=== PATIENT | male | born 1950 | race Caucasian/White ===

== ENCOUNTER → 2021-11-09 | Outpatient (CLI) | payer BC ==
--- NOTE | 2021-11-09 11:35 | CT ---
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 Coronal/sagittal reconstructions performed. CT DLP: 354.8 mGycm Automated exposure control for dose reduction was used. FINDINGS: There appear to post surgical change of prior FESS but with residual moderate to severe mucosal thick ening in the left ethmoid air cells with possible opacified left-sided Erendira cell. Scattered mild to moderate mucosal thickening throughout the remainder of the paranasal sinuses. Visualized orbits and globes and mastoid air cells appear clear. The nasopharynx appears clear. There is marked asymmetric soft tissue enlargement measuring 3.3 x 3.2 x 2.5 cm along the left tubal and left palatine tonsils mildly narrowing the junction of the nasopharynx and oropharynx. Moderate lingual tonsillar hypertrophy. Epiglottis and prevertebral soft tissues are satisfactory. Glottic and subglottic structures as well as the tracheal column appear clear. Mild biapical pleural-parenchymal scarring. Mild to moderate atherosclerotic plaque and calcification s within the aortic arch. Mild metastatic narrowing at the proximal bilateral subclavian arteries. And thyroid and submandibular glands appear satisfactory. Mild atrophy of the parotid glands. Asymmetrically prominent 8 mm left submandibular space lymph node. Palpable marker along the left lateral aspect of the upper neck with 2 enlarged underlying lymph node s measuring up to 2.7 cm. One of these lymph nodes shows loss of delineation with intervening fat abraham ne with the adjacent/overlying sternocleidomastoid muscle, refer to axial image 57. A rounded 1.0 cm lymph node also deep to the sternocleidal mastoid muscle lateral left mid neck is mi ldly suspicious. Coronal image 41. Moderate to advanced degenerative disc disease mid to lower cervical spine. IMPRESSION: 1. Neoplasm/mass of the left palatine tonsil measuring up to 3.3 cm, mildly narrowing the airway betw een the nasopharynx and oropharynx. 2. Two abnormal lymph nodes lateral left upper neck at the palpable site deep to the sternocleidomast oid muscle measuring up to 2.7 cm each. One of these shows loss of the fat plane with the adjacent st ernocleidomastoid muscle. Early extracapsular invasion difficult to exclude. 3. A third rounded 1.0 cm lymph node also deep to the left sternocleidomastoid muscle lateral left mi d neck is mildly suspicious.
== END | disposition home or self-care (01) ==
LOC: RADCTMAIN 06:28
PROVIDERS: ATTEND Otolaryngology
DX: C11.1 Malignant neoplasm of posterior wall of nasopharynx (principal); R59.1 Generalized enlarged lymph nodes
CPT/HCPCS: 82565; 84520; 70491; 36415; Q9967

== ENCOUNTER → 2021-11-30 | Outpatient (CLI) | payer MEDICARE, BC | END | disposition home or self-care (01) | LOC: RADPETMAIN 07:30 | PROVIDERS: ATTEND Internal Medicine Hematology & Oncology | DX: C76.0 Malignant neoplasm of head, face and neck (principal) | CPT/HCPCS: 78815; A9552 ==

== ENCOUNTER → 2022-01-17 | Outpatient (CLI) | payer MEDICARE, BC ==
--- NOTE | 2022-01-17 15:06 | MR ---
EXAMINATION TYPE: MR abdomen wo/w con DATE OF EXAM: 01/17/2022 COMPARISON: PET CT 11/30/2021. HISTORY: HEAD AND NECK CA. Abnormal recent PET/CT. CONTRAST: Standard multiplanar, multisequence MRI departmental protocol images were obtained without contrast a nd with 8 mL intravenous Gadavist gadolinium contrast. Imaging performed of the abdomen focusing on the liver. FINDINGS: Liver: Liver is normal in size with occasional benign tiny punctate thin-walled cysts. Largest cyst i n the right hepatic lobe measures near 10 mm axial image 26 series 701. No concerning solid masses to suggest metastatic disease identified. Gallbladder appears within normal limits. No biliary dilatati on is seen. Other: Lung bases are grossly clear. The spleen and pancreas appear within normal limits. Slight asym metric nodular thickening to the right adrenal gland with dropout consistent with benign lipid rich a denoma. Large exophytic thin-walled cyst upper pole right kidney measures 8.7 cm long axis coronal im age 31. No suspicious small or large bowel dilatation. Hepatic abdominal aorta without greater than 3 .0 cm aneurysm redemonstrated. Slight underlying scoliotic curvature with multilevel spurring and dis c space narrowing throughout the thoracolumbar spine. IMPRESSION: No MRI evidence for hepatic metastatic disease.
== END | disposition home or self-care (01) ==
LOC: RADMRIMAIN 11:43
PROVIDERS: ATTEND Internal Medicine Hematology & Oncology
DX: C76.0 Malignant neoplasm of head, face and neck (principal)
CPT/HCPCS: 74183; A9585

== ENCOUNTER → 2022-05-03 | Outpatient (CLI) | payer MEDICARE, BC ==
--- NOTE | 2022-05-03 13:05 | PE ---
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 Originally diagnosed November 23, 2021. Patient c ompleted radiation treatment February 08, 2021 and chemotherapy around same date. TECHNIQUE: Following the intravenous administration of 11.69 mCi of F-18 FDG, whole body images are performed from the skull base to the midthigh. Images are reviewed on the computer in the coronal, a xial, and sagittal planes. Reconstructed rotating images are created on independent workstation and reviewed on the computer. A localization and attenuation correction CT is performed in conjunction with the PET scan. Dedicated PET/CT imaging of the neck is performed. Blood glucose level equals 78 SCAN: Subsequent Scan FINDINGS: SKULL BASE AND NECK: Marked improvement in abnormal hypermetabolic primary left tongue base mass wit hout residual mass or hypermetabolic uptake near this level on current study. Marked improvement in a bnormal bilateral neck adenopathy greatest in number and size in the left neck without residual abnor mal hypermetabolic uptake or greater than 1 cm lymph nodes clearly seen on current study. No new or r esidual hypermetabolic masses are present. CHEST, MEDIASTINUM, AND HILAR REGION: No new areas of abnormal hypermetabolic uptake. ABDOMEN AND PELVIS: No new areas of abnormal hypermetabolic uptake. Normal excretion redemonstrated. OSSEOUS STRUCTURES: No new areas of abnormal hypermetabolic uptake. OTHER CT: Moderate calcified plaque centered bilateral carotid bulb level is redemonstrated. New mode rate subcutaneous edema submandibular region bilaterally presumed posttreatment change. Mild underlying emphysematous change is redemonstrated. Coronary artery calcification is again seen. There is 7.5 cm simple appearing thin-walled cyst upper pole of the right kidney axial image 133 rede monstrated. There is atherosclerotic and ectatic abdominal aorta axial image 167 redemonstrated. Cent ral calcifications in the slightly enlarged prostate gland are redemonstrated. Multilevel disc space narrowing and facet arthropathy in the lumbar spine is again seen. IMPRESSION: Complete positive treatment response as detailed above. No new or residual lesions of abn ormal hypermetabolic uptake noted.
== END | disposition home or self-care (01) ==
LOC: RADPETMAIN 08:34
PROVIDERS: ATTEND Radiology Radiation Oncology
DX: C09.1 Malignant neoplasm of tonsillar pillar (anterior) (posterior) (principal); C77.0 Secondary and unspecified malignant neoplasm of lymph nodes of head, face and neck; Z79.899 Other long term (current) drug therapy
CPT/HCPCS: 78815; A9552

== ENCOUNTER → 2023-03-07 | Outpatient (CLI) | payer MEDICARE, BC ==
[2023-03-07 10:36] LABS: African American GFR (CKD) >90 (>60 ml/min/1.73 sqM); Blood Urea Nitrogen 18 mg/dL (9-20); Non-African American GFR(CKD) 89 (>60 ml/min/1.73 sqM)
--- NOTE | 2023-03-07 13:06 | CT ---
EXAMINATION TYPE: CT neck chest w con DATE OF EXAM: 03/07/2023 COMPARISON: PET CT 05/03/2022 and 11/30/2021 HISTORY: 73-year-old male C7 6.0, Follow up for malignant neoplasm of head, face and neck. TECHNIQUE: Contiguous axial scanning of the neck and chest performed with IV Contrast, patient inject ed with 100ml mL of Isovue 300. Coronal/sagittal reconstructions performed. CT DLP: 710.5 mGycm Automated exposure control for dose reduction was used. FINDINGS: NECK: Scattered moderate mucosal thickening throughout the paranasal sinuses. Findings of prior sinonasal s urgery. Atrophic bilateral submandibular and parotid glands. No recurrent pharyngeal mass is identified. Similar slight asymmetric effacement of the left vallecul ar space. Epiglottis and prevertebral soft tissues are satisfactory. Glottic and subglottic structures as well as the tracheal column appear clear. Moderate atherosclerotic changes at the carotid bifurcations. Bones: Moderate to advanced spondylotic change C4-T1 levels. CHEST: Heart normal size without pericardial effusion. Scattered three-vessel coronary artery calcifications are present. Moderate atherosclerotic arch calcifications with conventional arch vessel branching anatomy. Ectatic lower descending thoracic aorta 2.9 cm. No thoracic lymphadenopathy by CT size criteria. Some streaky dependent atelectasis posterior lung bases. Underlying emphysematous change and minimal biapical pleural-parenchymal scarring. No consolidation or pleural effusion. There is a large cyst measuring 8.4 cm at the upper pole of the right kidney versus a 8.0 cm, previou sly. Possible suspicious hypodense lesion posterior segment 2 left liver lobe measuring 1.6 cm. Additional subtle hypodense areas are suggested in the mid liver liver measuring 1.5 cm. A new 3.7 cm hypodense lesion within the spleen. Bones: Mild multilevel degenerative disc disease. Anterior endplate spondylosis mid to lower thoracic spine. No osseous destructive process seen. IMPRESSION: NECK: 1. NO SUSPICIOUS MASS OR LYMPHADENOPATHY TO SUGGEST RECURRENT DISEASE IN THE NECK. CHEST: 2. HOWEVER, IN THE UPPER ABDOMEN, THERE ARE A COUPLE NEW SUSPICIOUS HEPATIC LESIONS MEASURING UP TO 1 .6 CM. 3. ALSO, NEW HYPODENSE LESION WITHIN THE SPLEEN MEASURING 3.7 CM. FINDINGS CONCERNING FOR METASTATIC DISEASE. 4. COPD WITH MILD EMPHYSEMA. CORONARY ARTERY CALCIFICATIONS. NO ACUTE PULMONARY PROCESS.
== END | disposition home or self-care (01) ==
LOC: RADCTMAIN 09:44
PROVIDERS: ATTEND Internal Medicine Hematology & Oncology
DX: C76.0 Malignant neoplasm of head, face and neck (principal); J43.9 Emphysema, unspecified; I25.10 Atherosclerotic heart disease of native coronary artery without angina pectoris; D73.89 Other diseases of spleen; K76.9 Liver disease, unspecified
CPT/HCPCS: 82565; 84520; 70491; 71260; 36415; Q9967

== ENCOUNTER 2023-04-28 11:31 | Day surgery (SDC) | payer MEDICARE, BC ==
[~2023-04-28 11:31] MED LIST: ACETAMINOPHEN TAB 500 MG TAB PO PRN; DEXAMETHASONE SOD PHOSPHATE 4 MG/ML 1 ML VIAL IV ONE; HEPARIN SODIUM,PORCINE/PF 5,000 UNIT/0.5 ML SYRINGE SQ PRN; HYDROmorphone 0.5 MG/0.5 ML SYRINGE IVP PRN; LACTATED RINGERS 1,000 ML IV SCH; LIDOCAINE 1% (10MG/ML) FOR IV START INTRADERMA PRN; ONDANSETRON 4 MG/2 ML VIAL IVP PRN; Pre Op ABX Message 1 EACH MISC MISCELLANE ONE
--- NOTE | 2023-04-28 12:05 | P.GSHP ---
History of Present Illness H&P Date: 04/28/23 CHIEF COMPLAINT: Metastatic squamous cell cancer HISTORY OF PRESENT ILLNESS: The patient is a 73-year-old male diagnosed with metastatic squamous cell cancer. He needs a Mediport placement for chemotherapy. PAST MEDICAL HISTORY: See list and reviewed PAST SURGICAL HISTORY: See list and reviewed CURRENT MEDICATIONS: See list and reviewed ALLERGIES: See list and reviewed SOCIAL HISTORY: See list and reviewed FAMILY HISTORY: See list and reviewed REVIEW OF ORGAN SYSTEMS: CONSTITUTIONAL: No fevers or chills RESPIRATORY: No pneumonia. No dyspnea on exertion. CARDIOVASCULAR: No recent chest pain. No history of blood clots PHYSICAL EXAMINATION: Vital signs: Stable GENERAL: Well developed and in no acute distress. Pleasant. HEENT: No sclera icterus. Extraocular movements grossly intact. Moist buccal mucosa. Head is atraumatic, normocephalic. Hears conversational sp eech. No nasal drainage. NECK: Supple without lymphadenopathy. No JV distention. CHEST: Non-labored respirations and equal bilateral excursions. CARDIOVASCULAR: Regular rate and rhythm. Palpable 2+ radial pulses. ABDOMEN: Nontender. MUSCULOSKELETAL: No clubbing, cyanosis or edema. NEUROLOGIC: No focal or lateralizing signs. PSYCH: Appropriate affect. Alert and oriented to person, place and time. ASSESSMENT: 1. Metastatic squamous cell cancer 2. Need for chemotherapeutic access. PLAN: 1. Port-A-Cath placement for chemotherapy access Past Medical History Past Medical History: Cancer, Hyperlipidemia Additional Past Medical History / Comment(s): tonsil cancer into lymph nodes 2021 radiation and chemo (last 02/28/22) clear pet scan 05/2022. repeat PET scan 03/[address] generalized squamous cell cancer. CT. per tumor to back of head that is uncomfortable and recent pain to side ( unspecified) History of Any Multi-Drug Resistant Organisms: None Reported Past Surgical History: Appendectomy Additional Past Surgical History / Comment(s): egd, Past Anesthesia/Blood Transfusion Reactions: No Reported Reaction Smoking Status: Former smoker - Past Family History Sister(s) Family Medical History: Cancer Father Family Medical History: Cancer Additional Family Medical History / Comment(s): lung Mother Family Medical History: Coronary Artery Disease (CAD) Medications and Allergies Home Medications Medication Instructions Recorded Confirmed Type Acetaminophen [Tylenol Extra 500 mg PO DIRECTED PRN 04/21/23 04/21/23 History Strength] Losartan [Cozaar] 50 mg PO HS 04/21/23 04/21/23 History Mv-Min/Folic/K1/Lycopen/Lutein 1 each PO DAILY 04/21/23 04/21/23 History [Centrum Silver Men Tablet] Unk Calcium 1 tab PO DAILY 04/21/23 04/21/23 History Unk Vitamin D3 1 tab PO DAILY 04/21/23 04/21/23 History Allergies Allergy/AdvReac Type Severity Reaction Status Date / Time No Known Allergies Allergy Verified 04/21/23 09:19
[2023-04-28 12:36] LABS: African American GFR (CKD) >90 (>60 ml/min/1.73 sqM); Anion Gap 8 mmol/L; Blood Urea Nitrogen 15 mg/dL (9-20); Carbon Dioxide 27 mmol/L (22-30); Chloride 104 mmol/L (98-107); Glucose 93 mg/dL (74-99); Non-African American GFR(CKD) >90 (>60 ml/min/1.73 sqM); Potassium 3.8 mmol/L (3.5-5.1); Sodium 139 mmol/L (137-145)
[2023-04-28 12:51] LABS: Basophils % (A) 0 %; Eosinophils # (A) 0.1 k/uL (0-0.7); Eosinophils % (A) 2 %; HCT 38.9 % (39.0-53.0); HGB 13.2 gm/dL (13.0-17.5); Lymphocytes # (A) 1.1 k/uL (1.0-4.8); Lymphocytes % (A) 14 %; MCH 31.4 pg (25.0-35.0); MCHC 33.9 g/dL (31.0-37.0); MCV 92.7 fL (80.0-100.0); Mean Platelet Volume 8.6; Monocytes # (A) 0.8 k/uL (0-1.0); Monocytes % (A) 10 %; Neutrophils # (A) 5.4 k/uL (1.3-7.7); Neutrophils % (A) 71 %; Platelet Count 335 k/uL (150-450); RDW 13.5 % (11.5-15.5); WBC 7.7 k/uL (3.8-10.6)
[2023-04-28] MEDS ORDERED: PHENYLEPHRINE-0.9% NACL SYG 1,000 MCG/10 ML SYRINGE ONE (13:09)
[2023-04-28] MEDS ORDERED: MIDAZOLAM 2 MG/2 ML VIAL ONE (13:09)
[2023-04-28] MEDS ORDERED: PROPOFOL 10 MG/ML 20 ML VIAL IV ONE (13:09)
[2023-04-28] MEDS ORDERED: LIDOCAINE 1% INJ 10MG/ML (20 ML MDV) ONE (13:09)
[2023-04-28] MEDS ORDERED: fentaNYL (PF) 50 MCG/ML 2 ML AMP ONE (13:09)
[2023-04-28] MEDS ORDERED: LIDOCAINE 0.5%-EPI 1:200,000 50 ML VIAL SQ ONE ×2 (13:41)
[2023-04-28] MEDS ORDERED: SODIUM CHLORIDE 0.9% 500 ML 500 ML with HEPARIN SODIUM,PORCINE (1 ML) 5,000 UNIT IV ONE ×2 (13:47)
[2023-04-28 14:30] VITALS: TEMP 97.2
--- NOTE | 2023-04-28 14:58 | FL ---
EXAMINATION TYPE: FL guided central line placemt HISTORY: Fluoroscopy time Impression: 1. Fluoroscopy support provided to the referring physician.
--- NOTE | 2023-04-28 15:05 | P.OP ---
Date of Procedure: 04/28/23 Description of Procedure: SURGEON: BHAKTI KHAN MD HOSPITAL ADMINISTRATOR: None. PREOPERATIVE DIAGNOSES: 1. 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 Need for chemotherapeutic access. 3. Hypertensive heart disease 4. History of previous chemoradiation for tonsillar cancer 5. Hyperlipidemia 6. Chronic obstructive pulmonary disease 7. Past tobacco abuse disorder POSTOPERATIVE DIAGNOSES: 1. 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 Need for chemotherapeutic access. 3. Hypertensive heart disease 4. History of previous chemoradiation for tonsillar cancer 5. Hyperlipidemia 6. Chronic obstructive pulmonary disease 7. Past tobacco abuse disorder PROCEDURES PERFORMED: 1. Ultrasound guided central venous access of the right internal jugular venous vein. 2. Fluoroscopic guidance for central venous access right internal jugular vein less than 1 seconds. 3. Placement of right internal jugular power port 6 [place] by ChaoWIFI, Xcela Plus Port ANESTHESIA: LMA sedation with local. ESTIMATED BLOOD LOSS: 1 mL. SPECIMENS REMOVED: None. COMPLICATIONS: None. FINDINGS: 1. No thrombus encountered along the right carotid artery or internal jugular vein. 2. Access of the right internal jugular vein under ultrasound guidance. 3. Fluoroscopy of less than 1 seconds. INDICATIONS: The patient is a 73-year-old male recently diagnosed with metastatic squamous cell cancer with history of tonsillar cancer. He presents for chemotherapeutic access. Benefits and risks of surgical intervention were described including bleeding, infection, mechanical problems with his port. Informed consent was obtained. DESCRIPTION OR PROCEDURE: Patient was brought into the operating room, laid in supine position. After adequate IV sedation, the chest and right neck were prepped and draped in a standard sterile fashion including the shoulder with ChloraPrep. Timeout protocol was confirmed with the surgical team regarding the patient's name, procedure to be performed including preoperative medications for which she received IV antibiotics. Bilateral SCDs were placed. An ultrasound was used to capture views of the right internal jugular vein including right carotid artery, which was patent and without thrombus along its course. The right IJ was then localized using anesthetic for the skin. A 16 [place] needle was used to access the IJ. A guidewire was advanced into the IJ with dark nonpulsatile venous blood. Two fingerbreadths distal to the clavicle, on the lateral third, a transverse 1.5 to 2 cm incision was deepened into the skin after localizing the skin. A pocket was created for the port. The port on the back table was flushed with heparinized saline and then attached to the catheter tubing. An adapter was fastened to the actual port site over the tubing. The port easily had fit snug into the pocket. A subcutaneous tunneler was placed along the open end of the tubing and brought out through the separate stab incision. Fluoroscopic guidance confirmed no kinking along the tubing and the port site. Next, the J-wire was exchanged for a catheter sheath for which the tubing was cut to 23 cm and then advanced through the catheter sheath. The Peel-away sheath was then removed and the tubing was secured at the junction of the superior vena cava as well as the right atrium. The tubing was found to be crossed however functional. This was all done under fluoroscopic guidance under 1 seconds. Easy pullback as well as return and aspiration was obtained of the port site. The skin incision was closed using layers using 3-0 Vicryl for the subcu followed by 4-0 Monocryl in a running subcuticular fashion. At the stick site this was also reapproximated using 4-0 Monocryl. The incisions were covered with Optifoam, The skin was cleansed and Exofin liquid glue was applied. Optifoam dressing was placed over the port site. A total of 30 mL of local anesthetic was placed. At the end of the procedure, needle, sponge, and instrument count was verified correct by surgical services tech. Heparin lock of 5 mL was placed. The patient was awoken and pain free and taken to the second stage postanesthesia care unit. The patient tolerated the procedure well. Plan - Discharge Summary Discharge Rx Participant: No New Discharge Prescriptions: Continue Mv-Min/Folic/K1/Lycopen/Lutein [Centrum Silver Men Tablet] 1 each PO DAILY Losartan [Cozaar] 50 mg PO HS Unk Calcium 1 tab PO DAILY Unk Vitamin D3 1 tab PO DAILY Acetaminophen [Tylenol Extra Strength] 500 mg PO DIRECTED PRN PRN Reason: Pain Discharge Medication List Acetaminophen [Tylenol Extra Strength] 500 mg PO DIRECTED PRN 04/21/23 [History] Losartan [Cozaar] 50 mg PO HS 04/21/23 [History] Mv-Min/Folic/K1/Lycopen/Lutein [Centrum Silver Men Tablet] 1 each PO DAILY 04/21/23 [History] Unk Calcium 1 tab PO DAILY 04/21/23 [History] Unk Vitamin D3 1 tab PO DAILY 04/21/23 [History] Follow up Appointment(s)/Referral(s): Bhakti Khan MD [STAFF PHYSICIAN] - As Needed Patient Instructions/Handouts: *Surgery [facility] - (Anesthesia) Discharge Instructions Outpatient Surgery, Implanted Venous Access Port (GEN) Activity/Diet/Wound Care/Special Instructions: Remove dressing on May 02. May shower. No bathtub soaks for 2 weeks, May 12 No wide motions of the right arm to prevent dislodge of your port for 3 weeks. EXPECT BRUISING AND SLEEP WITH 2 TO 3 PILLOWS. BRUISING RESOLVES IN 2 TO 3 WEEKS. Take Tylenol, Aleve or ibuprofen for pain as needed Discharge Disposition: HOME SELF-CARE
--- NOTE | 2023-04-28 15:36 | XR ---
EXAMINATION TYPE: XR chest 1V confirm line [facility] DATE OF EXAM: 04/28/2023 COMPARISON: NONE HISTORY: Port-A-Cath insertion TECHNIQUE: Single frontal view of the chest is obtained. FINDINGS: There is no focal air space opacity, pleural effusion, or pneumothorax seen. The cardiac silhouette size is within normal limits. The osseous structures are intact. Atherosclerotic change in the aorta. A right-sided Mediport with the tip overlying the SVC. Underlying emphysematous changes space osteopenia with facet joint arthropathy. IMPRESSION: 1. Mediport appears in good position with no sizable pneumothorax.
[2023-04-28 16:01] VITALS: BP 131/74; PULSE 74; RESP 18
== END 2023-04-28 15:55 | disposition home or self-care (01) ==
LOC: OR 11:31
PROVIDERS: ATTEND Surgery Plastic and Reconstructive Surgery
DX: C09.9 Malignant neoplasm of tonsil, unspecified (principal); I10 Essential (primary) hypertension; E78.5 Hyperlipidemia, unspecified; J44.9 Chronic obstructive pulmonary disease, unspecified; Z87.891 Personal history of nicotine dependence; Z92.3 Personal history of irradiation; Z92.21 Personal history of antineoplastic chemotherapy; Z85.818 Personal history of malignant neoplasm of other sites of lip, oral cavity, and pharynx; Z79.899 Other long term (current) drug therapy; Z98.890 Other specified postprocedural states; Z82.49 Family history of ischemic heart disease and other diseases of the circulatory system
CPT/HCPCS: 36561; 80048; 85025; 77001; C1788; J2250; J1644 ×2; J1100; J0690; J2405; J2001; J3010; J1642; J2704; J2371

== ENCOUNTER → 2023-08-28 | Outpatient (CLI) | payer MEDICARE, BC ==
--- NOTE | 2023-08-31 22:37 | PE ---
EXAMINATION TYPE: PET CT fusion skull to thigh DATE OF EXAM: 08/28/2023 COMPARISON: 03/07/2023 Prior PET/CT: 03/26/2023 HISTORY: Head and neck cancer squamous cell right tonsillar neoplasm. TECHNIQUE: Following the intravenous administration of 7.66 mCi of F-18 FDG, whole body images are p erformed from the skull base to the midthigh. Images are reviewed on the computer in the coronal, ax ial, and sagittal planes. Reconstructed rotating images are created on independent workstation and r eviewed on the computer. A localization and attenuation correction CT is performed in conjunction w ith the PET scan. DLP: 651.02 mGycm SCAN: Subsequent Blood glucose: 8 9 mg/dL Average Mediastinum SUV: 1.75 Average Liver SUV: 2.58 FINDINGS: NECK: There is intense uptake within the subcutaneous tissues right occipital region. This has an SHAH V value of 18.4. There is a punctate area of uptake within the subcutaneous tissues right lower neck. Image 39, SUV 3.26. THORAX: Intense activity is around the left scapula appears to be external to the osseous structures within the musculature. This is isolated correlate for trauma or injury. There is a punctate area of uptake within the upper left axillary region, image 62, SUV 10.84 could b e related to the shoulder uptake but is separate. There is a focus of radiotracer at the costovertebr al junction in the upper thoracic spine, image 66, SUV 9.98 suspicious for metastatic disease is main ly in the paraspinal soft tissues. There is a left axillary lymph node with intense activity measuring 16.96, image 84. Additional punct ate left axillary lymph node has uptake, image 95 that should be 5.53. ABDOMEN: There are multiple areas of increased uptake through the liver. This would include a posteri or right superior lobe liver measuring 14.64, image 120 multiple scattered bilateral smaller nodules including within the medial left lobe liver, image 134 SUV 12.51. There is retrocaval adenopathy with increased uptake, image 164, SUV 7.68. Slightly more midline ante rior uptake is present, image 161 SUV 8.83. PELVIS: There is a punctate subcutaneous tissue nodule image 264 with SUV of 6.27. OSSEOUS STRUCTURES: There is uptake within the right upper manubrium, image 74, SUV 9.82. Findings th ere is uptake within the right lateral rib, image 92, SUV 4.59. This is Suspicious for metastatic dis ease. There is a punctate area of uptake within the mid thoracic vertebral body image 102 SUV 6.12. T here is intense activity along the anterior lateral right rib, image 112 SUV 9.90. Posterior lateral left lower rib metastasis measuring 9.41 SUV present on image 153. Right lateral ilium uptake, image 181, SUV 12.63. Large metastatic lesion within the superior acetabulum, example image 201, SUV 15.09. There is uptake within the medial proximal right ischio ramus SUV 9.21, image 2-7. Additional uptake within the posterior greater trochanter of the right hip image 2-6 has an SUV of 5.87. May be some m ild uptake within the medial mid right scapula, example image 67 dedicated head and neck imaging SUV 4.[address]: Note is made of a right renal cyst. COMPARISON: Uptake within the subcutaneous right occipital region is significantly increased in size over the interval. Left and right scapular areas were present previously for comparison right scapula has an SUV of 4.18 previously currently 4.4. Right paraspinal uptake in the proximal thoracic region present previously. Uptake within the manubrium left adnexal lymph nodes appears stable. Rib activit y was present previously and is increased currently. Activity within the iliac regions including abov e the right acetabulum are increased or new over the interval. Previous uptake within the liver is increased. Reference lesion previously 8.92 SUV, currently 14.64. Left lobe liver previously 9.63, currently 12.51. Previous left hilar uptake is not identified on the current examination. IMPRESSION: 1. No suspicious changes for local recurrence right tonsil. 2. There is increasing SUV values through multiple metastatic lesions present previously. This includ es both osseous metastasis and hepatic metastasis. Osseous metastases appear increased in number with in the pelvis prior exam
== END | disposition home or self-care (01) ==
LOC: RADPETMAIN 12:19
PROVIDERS: ATTEND Internal Medicine Hematology & Oncology
DX: C79.51 Secondary malignant neoplasm of bone (principal); C78.7 Secondary malignant neoplasm of liver and intrahepatic bile duct; C76.0 Malignant neoplasm of head, face and neck
CPT/HCPCS: 78815; A9552

== ENCOUNTER 2023-12-13 15:34 | Inpatient (IN) | payer MEDICARE, BC ==
--- NOTE | 2023-12-13 16:01 | ED ---
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 History is largely provided by patient's however patient is AO x 4. She states that the patient has seen Dr. Webster, oncology for radiation for tonsilar cancer, recently discovered there are metastases to patient's " entire abdomen" from his throat CA. Over the last 2 to 3 days patient has had worsening lower extremity swelling with weeping. Patient does not currently complain of abdominal pain though does state he has intermittent abdominal pain when he tries to lay flat. Patient's states that patient is been sllower to answer questions over the course of the last week. Denies chest pain. Patient denies shortness of breath however his states that he has complained of shortness of breath in the past. Patient not on blood thinners. No nausea, no vomiting. Recently has had light-colored small-volume, frequent stools. No fevers or chills. Takes 20 mg of furosemide daily, no missed dosages. Patient currently on palliative care and being evaluated for hospice tomorrow. - Related Data Home Medications Medication Instructions Recorded Confirmed Docusate [Colace] 100 mg PO DAILY 12/13/23 12/15/23 Furosemide [Lasix] 20 mg PO DAILY 12/13/23 12/15/23 Hydrocortisone Cream 1 applic TOPICAL TID PRN 12/13/23 12/15/23 [Hydrocortisone 2.5% Cream] Lidocaine-Prilocaine Cream [Emla 1 applic TOPICAL DIRECTED PRN 12/13/23 12/15/23 Cream 2.5%/2.5%] ondansetron HCL [Zofran] 8 mg PO Q6H PRN 12/13/23 12/15/23 traMADol HCL 25 mg PO Q6H 12/13/23 12/15/23 Allergies Allergy/AdvReac Type Severity Reaction Status Date / Time No Known Allergies Allergy Verified 12/13/23 19:54 Review of Systems ROS Statement: Those systems with pertinent positive or pertinent negative responses have been documented in the HPI. ROS Other: All systems not noted in ROS Statement are negative. Constitutional: Denies: fever, chills Past Medical History Past Medical History: Cancer, Hyperlipidemia Additional Past Medical History / Comment(s): tonsil cancer into lymph nodes 2021 radiation and chemo (last 02/28/22) clear pet scan 05/2022. repeat PET scan 03/[address] CT[address] per tumor to back of head that is uncomfortable and recent pain to side ( unspecified) History of Any Multi-Drug Resistant Organisms: None Reported Past Surgical History: Appendectomy Additional Past Surgical History / Comment(s): egd, Past Anesthesia/Blood Transfusion Reactions: No Reported Reaction Past Psychological History: No Psychological Hx Reported Smoking Status: Former smoker Past Alcohol Use History: None Reported Past Drug Use History: None Reported - Past Family History Sister(s) Family Medical History: Cancer Father Family Medical History: Cancer Additional Family Medical History / Comment(s): lung Mother Family Medical History: Coronary Artery Disease (CAD) General Exam - General Exam Comments Initial Comments: PE: CONSTITUTIONAL: Ill appearing, in no acute distress, awake, answers questions appropriately, though somewhat somnolent SKIN: warm, moist, exquisitely jaundiced, clear vesicular lesions to distal lower extremities weeping clear fluid, no erythema EYES: pupils are equally round, extraocular movements intact without nystagmus, clear conjunctiva, significant scleral icterus noted HENT: normocephalic, atraumatic, mucus membranes, oropharynx clear without exudates NECK: full range of motion PULMONARY: clear to auscultation without wheezes, rhonchi, or rales, normal excursion, no accessory muscle use and no stridor CARDIOVASCULAR: regular rate, rhythm, normal S1 and S2. No appreciated murmurs. Strong radial pulses with intact distal perfusion GASTROINTESTINAL: soft, minimally tender, nondistended, significant hepatosplenomegaly noted no rebound or guarding LYMPHATICS: 4+ pitting edema in the bilateral lower extremities extending up to thighs MUSCULOSKELETAL: Extremities have no gross deformity, redness or signs of injury NEUROLOGIC: _a/o x 3, GCS 15, mentation and speech clear, though patient somewhat somnolent. Moves all extremities x 4 without motor or sensory deficit PSYCHIATRIC: _normal mood and affect, thought process is clear and linear Limitations: no limitations Course Vital Signs 07/13/24 07/13/24 07/13/24 15:37 20:35 20:49 Temperature 98.6 F Pulse Rate 90 80 82 Respiratory 16 14 14 Rate Blood Pressure 94/62 77/51 108/70 O2 Sat by Pulse 100 99 98 Oximetry 12/13/23 12/13/23 12/13/23 21:00 21:15 22:00 Temperature Pulse Rate 90 89 92 Respiratory 20 14 16 Rate Blood Pressure 121/73 121/70 107/72 O2 Sat by Pulse 97 100 98 Oximetry 12/13/23 12/14/23 12/14/23 23:08 00:37 02:00 Temperature Pulse Rate 90 92 89 Respiratory 16 18 16 Rate Blood Pressure 110/66 90/60 97/62 O2 Sat by Pulse 99 99 98 Oximetry 12/14/23 12/14/23 12/14/23 03:15 04:30 05:43 Temperature Pulse Rate 90 92 87 Respiratory 18 18 14 Rate Blood Pressure 93/64 104/69 95/64 O2 Sat by Pulse 98 99 98 Oximetry 12/14/23 12/14/23 12/14/23 07:00 07:10 09:31 Temperature Pulse Rate 95 89 Respiratory 18 18 Rate Blood Pressure 106/69 103/69 99/57 O2 Sat by Pulse 99 98 Oximetry 12/14/23 12/14/23 12/14/23 12:29 13:01 13:56 Temperature Pulse Rate 87 86 84 Respiratory 18 18 16 Rate Blood Pressure 91/64 97/59 81/54 O2 Sat by Pulse 96 97 96 Oximetry 12/14/23 12/14/23 12/14/23 14:09 15:08 15:32 Temperature Pulse Rate 85 88 88 Respiratory 14 16 16 Rate Blood Pressure 75/42 80/53 88/55 O2 Sat by Pulse 96 97 99 Oximetry 12/14/23 16:18 Temperature 97.5 F L Pulse Rate 89 Respiratory 18 Rate Blood Pressure 83/56 O2 Sat by Pulse 99 Oximetry - Reevaluation(s) Reevaluation #1: White blood cell count 12.6, coagulation studies with PT elevated 20, INR 2, PTT 65.6, I suspect this is secondary to hepatic dysfunction however patient's port was drawn off of with heparin so we will redraw PT PTT, sodium 132, chloride 97, bicarb 5, creatinine 5.14, BUN 115, lactic is 9.6, patient is peripherally fluid overloaded I suspect secondary to hepatorenal syndrome so at this point we will hold IV fluids, I plan to consult nephrology for further assistance with recommendations, total bilirubin 33.12, mag 2.7, AST/ALT 405/136, alkaline phosphatase 1116, ammonia 73, troponin 0.049 I suspect secondary to demand ischemia however will order repeat, BNP 4040. Paged neprhology for further recs. 12/13/23 18:34 12/16/23 13:57 Reevaluation #2: 12/13/23 18:[address] Avalos, nephrology, appreciate recs. Recommended 1 L normal saline given patient's acidosis, 4 AMP of bicarb, insert Perez catheter, 3 A of bicarb in D5 drip 50 mL an hour, 1 hour after IV normal saline bolus given give 60 mg IV Lasix. Currently pending imaging, anticipate admission to ICU 12/16/23 13:58 Medical Decision Making - Medical Decision Making Was pt. sent in by a medical professional or institution (, PA, TOP LIFT TRIMMER, urgent care, hospital, or assisted...) When possible be specific @ -[No] Did you speak to anyone other than the patient for history (EMS, parent, family, police, friend...)? What history was obtained from this source @ -Spoke with patient and Did you review nursing and triage notes (agree or disagree)? Why? @ -[I reviewed and agree with nursing and triage notes] Were old charts reviewed (outside hosp., previous admission, EMS record, old EKG, old radiological studies, urgent care reports/EKG's, assisted records)? Report findings @ -Reviewed most recent labs and imaging to see ED course for findings, Patient with recent PET scan on August 31, 2023 with significant findings of multiple metastatic lesions present including osseous metastases and hepatic metastases Differential Diagnosis (chest pain, altered mental status, abdominal pain women, abdominal pain men, vaginal bleeding, weakness, fever, dyspnea, syncope, headache, dizziness, GI bleed, back pain, seizure, CVA, palpatations, mental health, musculoskeletal)? @ -Differential Altered Mental Status: Highly suspect hepatic encephalopathy, additionally top considerations include hypoglycemia, metabolic abnormality, hypercapnia, myxedema coma, infection, intracranial metastases or hemorrhage this is not meant to be an all-inclusive list EKG interpreted by me (3pts min.). @ -[As above] X-rays interpreted by me (1pt min.). @ -Patient with recent PET scan on August 31, 2023 with significant findings of multiple metastatic lesions present including osseous metastases and hepatic m etastases CT interpreted by me (1pt min.). @ -I reviewed patient's CT abdomen pelvis markable for small amount of ascites and hepatomegaly, I see no evidence of perforation or obstruction U/S interpreted by me (1pt. min.). @ -[None done] What testing was considered but not performed or refused? (CT, X-rays, U/S, labs)? Why? @ -Considered CT PE study, CT abdomen pelvis with contrast however given p atient's renal function these were canceled, given patient's elevated coagulation studies I have a low suspicion for pulmonary embolism, patient is not hypoxic and currently denies shortness of breath or chest pain, even so if patient were discovered to have PE he would not be an anticoagulation candidate given elevated coagulation studies, I feel at this point that risk of further kidney injury outweighs any benefit of obtaining CTs with contrast, if needed patient can have VQ scan performed inpatient if concern persists for PE What meds were considered but not given or refused? Why? @ -Consider lactulose given elevated ammonia however patient already appears centrally volume depleted with an elevated lactic so this will be held, full 30 cc/kg bolus was also considered as patient was being evaluated for sepsis however patient peripherally volume overloaded so a full 30 cc/kg bolus was withheld Did you discuss the management of the patient with other professionals (professionals i.e. , PA, TOP LIFT TRIMMER, lab, RT, psych nurse, manager social work, corporation lawyer, teacher, [employer] plans staff officer, test case developer)? Give summary @ -Patient discussed with Dr. Darnell, nephrology Was smoking cessation discussed for >3mins.? @ -[No] Was critical care preformed (if so, how long)? @ -Yes, 45 minutes Were there social determinants of health that impacted care today? How? (Homelessness, low income, unemployed, alcoholism, drug addiction, transportation, low edu. Level, literacy, decrease access to med. care, retirement, rehab)? @ -[No] Was there de-escalation of care discussed even if they declined (Discuss DNR or withdrawal of care, Hospice)? DNR status @ -I did discuss with patient and status, patient is currently a DNR, he is undergoing palliative care, patient to be evaluated for hospice tomorrow, family and patient would currently like to proceed with further care for his current medical ailments and discussed that hospice consult can also be performed inpatient if needed What co-morbidities impacted this encounter? (DM, HTN, Smoking, COPD, CAD, Cancer, CVA, ARF, Chemo, Hep., AIDS, mental health diagnosis, sleep apnea, morbid obesity)? @ -Tonsillar cancer Was patient admitted / discharged? Hospital course, mention meds given and route, prescriptions, significant lab abnormalities, going to OR and other pertinent info. @ -Patient is a 73-year-old male past medical history of throat cancer metastas es throughout the abdomen presenting today for altered mental status and lower extremity edema. On assessment patient is jaundiced, ill-appearing, no acute distress. He is A&O x 4, states that he is slower to answer questions than normal. Severe lower extremity edema with weeping clear fluid. Generalized abdominal tenderness with hepatosplenomegaly. Abdomen is mildly distended. Lungs clear to auscultation bilaterally. No focal neurologic deficits. Speech is clear patient is somewhat somnolent Ultimately patient found to be severely acidotic, initial lactic 9.6. and acute renal failure, bicarb less than 5. Discussed with Dr. Darnell, recommended 1 L normal saline, additionally give 4 A of bicarb and bicarb/D5 drip 3 A of bicarb at 50 cc an hour one 1 hour after giving normal saline give 60 mg Lasix. Recommends admit to the ICU. I did update patient and family to today's fi ndings, we did discuss patient's worsening renal and hepatic function. Of note patient was supposed to have hospice visit his home tomorrow for evaluation of hospice, is currently on palliative care. He is a DNR/no code. Discussed with Dr. Hickman, [facility]ro, who accepts for admission. While pending admission patient did have soft blood pressures, 71/50 prior to IV fluids, continuously improved to 100/60 with initiation of IV fluids. Did seem to be positional. Because of borderline blood pressures Lasix was decreased to 30 mg for first dose and second dose of 30 mg to be given one hour later. Patient admitted to ICU. Undiagnosed new problem with uncertain prognosis? @ -Yes Drug Therapy requiring intensive monitoring for toxicity (Heparin, Nitro, Insulin, Cardizem)? @ -[No] Were any procedures done? @ -[No] Diagnosis/symptom? @ -MAHIN, hepatic encephalopathy, metabolic acidosis Acute, or Chronic, or Acute on Chronic? @ -Acute Uncomplicated (without systemic symptoms) or Complicated (systemic symptoms)? @ -Complicated Exacerbation, Progression, or Severe Exacerbation? @ -Progression Poses a threat to life or bodily function? How? (Chest pain, [place], AL, pneumonia, PE, COPD, DKA, ARF, appy, cholecystitis, CVA, Diverticulitis, Homicidal, Suicidal, threat to staff... and all critical care pts) @ -Yes, patient with MAHIN, ARF, worsening hepatic function, severely acidotic - Lab Data Result diagrams: 12/14/23 07:00 12/14/23 07:00 Lab Results 12/13/23 12/13/23 12/13/23 Range/Units 16:01 16:01 16:01 WBC 12.6 H (3.8-10.6) k/uL RBC 4.24 L (4.30-5.90) m/uL Hgb 13.9 (13.0-17.5) gm/dL Hct 41.0 (39.0-53.0) % MCV 96.7 (80.0-100.0) fL MCH 32.7 (25.0-35.0) pg MCHC 33.8 (31.0-37.0) g/dL RDW 19.6 H (11.5-15.5) % Plt Count 267 (150-450) k/uL MPV 10.6 Neutrophils % 83 % Lymphocytes % 7 % Monocytes % 6 % Eosinophils % 1 % Basophils % 0 % Neutrophils # 10.5 H (1.3-7.7) k/uL Lymphocytes # 0.8 L (1.0-4.8) k/uL Monocytes # 0.8 (0-1.0) k/uL Eosinophils # 0.1 (0-0.7) k/uL Basophils # 0.0 (0-0.2) k/uL Poikilocytosis Slight Anisocytosis Slight Macrocytosis Slight PT 20.0 H (10.0-12.5) sec INR 2.0 H (<1.2) APTT 65.6 H (22.0-30.0) sec Sodium 132 L (137-145) mmol/L Potassium 3.8 (3.5-5.1) mmol/L Chloride 97 L (98-107) mmol/L Carbon Dioxide <5 L* (22-30) mmol/L Anion Gap mmol/L BUN 115 H* (9-20) mg/dL Creatinine 5.14 H (0.66-1.25) mg/dL Est GFR (CKD-EPI)AfAm 12 (>60 ml/min/1.73 sqM) Est GFR (CKD-EPI)NonAf 10 (>60 ml/min/1.73 sqM) Glucose 108 H (74-99) mg/dL POC Glucose (mg/dL) (70-110) mg/dL POC Glu Load Out Supervisor ID Lactic Ac Sepsis Rflx Plasma Lactic Acid Irving (0.7-2.0) mmol/L Calcium 7.3 L (8.4-10.2) mg/dL Magnesium 2.7 H (1.6-2.3) mg/dL Total Bilirubin 33.2 H* (0.2-1.3) mg/dL AST 405 H (17-59) U/L ALT 136 H (4-49) U/L Alkaline Phosphatase 1116 H (38-126) U/L Ammonia (<30) umol/L Troponin I (0.000-0.034) ng/mL NT-Pro-B Natriuret Pep 4040 pg/mL Total Protein 6.3 (6.3-8.2) g/dL Albumin 2.8 L (3.5-5.0) g/dL Lipase 172 (23-300) U/L Urine Color Urine Appearance (Clear) Urine pH (5.0-8.0) Ur Specific Superior (1.001-1.035) Urine Protein (Negative) Urine Glucose (UA) (Negative) Urine Ketones (Negative) Urine Blood (Negative) Urine Nitrite (Negative) Urine Bilirubin (Negative) Urine Urobilinogen (<2.0) mg/dL Ur Leukocyte Esterase (Negative) Urine RBC (0-5) /hpf Urine WBC (0-5) /hpf Amorphous Sediment (None) /hpf Hyaline Casts (0-2) /lpf Salicylates <1.0 mg/dL Urine Opiates Screen (NotDetected) Ur Oxycodone Screen (NotDetected) Urine Methadone Screen (NotDetected) Acetaminophen <10.0 ug/mL Ur Barbiturates Screen (NotDetected) U Tricyclic Antidepress (NotDetected) Ur Phencyclidine Scrn (NotDetected) Ur Amphetamines Screen (NotDetected) U Methamphetamines Scrn (NotDetected) U Benzodiazepines Scrn (NotDetected) Urine Cocaine Screen (NotDetected) U Marijuana (THC) Screen (NotDetected) Serum Alcohol 10 mg/dL 12/13/23 12/13/23 12/13/23 Range/Units 16:01 16:02 16:35 WBC (3.8-10.6) k/uL RBC (4.30-5.90) m/uL Hgb (13.0-17.5) gm/dL Hct (39.0-53.0) % MCV (80.0-100.0) fL MCH (25.0-35.0) pg MCHC (31.0-37.0) g/dL RDW (11.5-15.5) % Plt Count (150-450) k/uL MPV Neutrophils % % Lymphocytes % % Monocytes % % Eosinophils % % Basophils % % Neutrophils # (1.3-7.7) k/uL Lymphocytes # (1.0-4.8) k/uL Monocytes # (0-1.0) k/uL Eosinophils # (0-0.7) k/uL Basophils # (0-0.2) k/uL Poikilocytosis Anisocytosis Macrocytosis PT (10.0-12.5) sec INR (<1.2) APTT (22.0-30.0) sec Sodium (137-145) mmol/L Potassium (3.5-5.1) mmol/L Chloride (98-107) mmol/L Carbon Dioxide (22-30) mmol/L Anion Gap mmol/L BUN (9-20) mg/dL Creatinine (0.66-1.25) mg/dL Est GFR (CKD-EPI)AfAm (>60 ml/min/1.73 sqM) Est GFR (CKD-EPI)NonAf (>60 ml/min/1.73 sqM) Glucose (74-99) mg/dL POC Glucose (mg/dL) 114 H (70-110) mg/dL POC Glu Load Out Supervisor ID Cecilia Casey Lactic Ac Sepsis Rflx Plasma Lactic Acid Irving 9.6 H* (0.7-2.0) mmol/L Calcium (8.4-10.2) mg/dL Magnesium (1.6-2.3) mg/dL Total Bilirubin (0.2-1.3) mg/dL AST (17-59) U/L ALT (4-49) U/L Alkaline Phosphatase (38-126) U/L Ammonia 73 H (<30) umol/L Troponin I 0.049 H* (0.000-0.034) ng/mL NT-Pro-B Natriuret Pep pg/mL Total Protein (6.3-8.2) g/dL Albumin (3.5-5.0) g/dL Lipase (23-300) U/L Urine Color Urine Appearance (Clear) Urine pH (5.0-8.0) Ur Specific Superior (1.001-1.035) Urine Protein (Negative) Urine Glucose (UA) (Negative) Urine Ketones (Negative) Urine Blood (Negative) Urine Nitrite (Negative) Urine Bilirubin (Negative) Urine Urobilinogen (<2.0) mg/dL Ur Leukocyte Esterase (Negative) Urine RBC (0-5) /hpf Urine WBC (0-5) /hpf Amorphous Sediment (None) /hpf Hyaline Casts (0-2) /lpf Salicylates mg/dL Urine Opiates Screen (NotDetected) Ur Oxycodone Screen (NotDetected) Urine Methadone Screen (NotDetected) Acetaminophen ug/mL Ur Barbiturates Screen (NotDetected) U Tricyclic Antidepress (NotDetected) Ur Phencyclidine Scrn (NotDetected) Ur Amphetamines Screen (NotDetected) U Methamphetamines Scrn (NotDetected) U Benzodiazepines Scrn (NotDetected) Urine Cocaine Screen (NotDetected) U Marijuana (THC) Screen (NotDetected) Serum Alcohol mg/dL 07/13/24 07/13/24 07/13/24 Range/Units 17:46 18:56 19:50 WBC (3.8-10.6) k/uL RBC (4.30-5.90) m/uL Hgb (13.0-17.5) gm/dL Hct (39.0-53.0) % MCV (80.0-100.0) fL MCH (25.0-35.0) pg MCHC (31.0-37.0) g/dL RDW (11.5-15.5) % Plt Count (150-450) k/uL MPV Neutrophils % % Lymphocytes % % Monocytes % % Eosinophils % % Basophils % % Neutrophils # (1.3-7.7) k/uL Lymphocytes # (1.0-4.8) k/uL Monocytes # (0-1.0) k/uL Eosinophils # (0-0.7) k/uL Basophils # (0-0.2) k/uL Poikilocytosis Anisocytosis Macrocytosis PT (10.0-12.5) sec INR (<1.2) APTT 65.3 H (22.0-30.0) sec Sodium (137-145) mmol/L Potassium (3.5-5.1) mmol/L Chloride (98-107) mmol/L Carbon Dioxide (22-30) mmol/L Anion Gap mmol/L BUN (9-20) mg/dL Creatinine (0.66-1.25) mg/dL Est GFR (CKD-EPI)AfAm (>60 ml/min/1.73 sqM) Est GFR (CKD-EPI)NonAf (>60 ml/min/1.73 sqM) Glucose (74-99) mg/dL POC Glucose (mg/dL) (70-110) mg/dL POC Glu Load Out Supervisor ID Lactic Ac Sepsis Rflx Y Plasma Lactic Acid Irving (0.7-2.0) mmol/L Calcium (8.4-10.2) mg/dL Magnesium (1.6-2.3) mg/dL Total Bilirubin (0.2-1.3) mg/dL AST (17-59) U/L ALT (4-49) U/L Alkaline Phosphatase (38-126) U/L Ammonia (<30) umol/L Troponin I 0.044 H* (0.000-0.034) ng/mL NT-Pro-B Natriuret Pep pg/mL Total Protein (6.3-8.2) g/dL Albumin (3.5-5.0) g/dL Lipase (23-300) U/L Urine Color Urine Appearance (Clear) Urine pH (5.0-8.0) Ur Specific Superior (1.001-1.035) Urine Protein (Negative) Urine Glucose (UA) (Negative) Urine Ketones (Negative) Urine Blood (Negative) Urine Nitrite (Negative) Urine Bilirubin (Negative) Urine Urobilinogen (<2.0) mg/dL Ur Leukocyte Esterase (Negative) Urine RBC (0-5) /hpf Urine WBC (0-5) /hpf Amorphous Sediment (None) /hpf Hyaline Casts (0-2) /lpf Salicylates mg/dL Urine Opiates Screen (NotDetected) Ur Oxycodone Screen (NotDetected) Urine Methadone Screen (NotDetected) Acetaminophen ug/mL Ur Barbiturates Screen (NotDetected) U Tricyclic Antidepress (NotDetected) Ur Phencyclidine Scrn (NotDetected) Ur Amphetamines Screen (NotDetected) U Methamphetamines Scrn (NotDetected) U Benzodiazepines Scrn (NotDetected) Urine Cocaine Screen (NotDetected) U Marijuana (THC) Screen (NotDetected) Serum Alcohol mg/dL 12/13/23 12/13/23 Range/Units 21:00 21:00 WBC (3.8-10.6) k/uL RBC (4.30-5.90) m/uL Hgb (13.0-17.5) gm/dL Hct (39.0-53.0) % MCV (80.0-100.0) fL MCH (25.0-35.0) pg MCHC (31.0-37.0) g/dL RDW (11.5-15.5) % Plt Count (150-450) k/uL MPV Neutrophils % % Lymphocytes % % Monocytes % % Eosinophils % % Basophils % % Neutrophils # (1.3-7.7) k/uL Lymphocytes # (1.0-4.8) k/uL Monocytes # (0-1.0) k/uL Eosinophils # (0-0.7) k/uL Basophils # (0-0.2) k/uL Poikilocytosis Anisocytosis Macrocytosis PT (10.0-12.5) sec INR (<1.2) APTT (22.0-30.0) sec Sodium (137-145) mmol/L Potassium (3.5-5.1) mmol/L Chloride (98-107) mmol/L Carbon Dioxide (22-30) mmol/L Anion Gap mmol/L BUN (9-20) mg/dL Creatinine (0.66-1.25) mg/dL Est GFR (CKD-EPI)AfAm (>60 ml/min/1.73 sqM) Est GFR (CKD-EPI)NonAf (>60 ml/min/1.73 sqM) Glucose (74-99) mg/dL POC Glucose (mg/dL) (70-110) mg/dL POC Glu Load Out Supervisor ID Lactic Ac Sepsis Rflx Plasma Lactic Acid Irving (0.7-2.0) mmol/L Calcium (8.4-10.2) mg/dL Magnesium (1.6-2.3) mg/dL Total Bilirubin (0.2-1.3) mg/dL AST (17-59) U/L ALT (4-49) U/L Alkaline Phosphatase (38-126) U/L Ammonia (<30) umol/L Troponin I (0.000-0.034) ng/mL NT-Pro-B Natriuret Pep pg/mL Total Protein (6.3-8.2) g/dL Albumin (3.5-5.0) g/dL Lipase (23-300) U/L Urine Color Dark Brown Urine Appearance Cloudy (Clear) Urine pH 5.5 (5.0-8.0) Ur Specific Superior 1.013 (1.001-1.035) Urine Protein 1+ H (Negative) Urine Glucose (UA) Trace H (Negative) Urine Ketones Negative (Negative) Urine Blood Small H (Negative) Urine Nitrite Negative (Negative) Urine Bilirubin 3+ H (Negative) Urine Urobilinogen <2.0 (<2.0) mg/dL Ur Leukocyte Esterase Negative (Negative) Urine RBC 6 H (0-5) /hpf Urine WBC 5 (0-5) /hpf Amorphous Sediment Moderate H (None) /hpf Hyaline Casts 3 H (0-2) /lpf Salicylates mg/dL Urine Opiates Screen Not Detected (NotDetected) Ur Oxycodone Screen Not Detected (NotDetected) Urine Methadone Screen Not Detected (NotDetected) Acetaminophen ug/mL Ur Barbiturates Screen Not Detected (NotDetected) U Tricyclic Antidepress Not Detected (NotDetected) Ur Phencyclidine Scrn Not Detected (NotDetected) Ur Amphetamines Screen Not Detected (NotDetected) U Methamphetamines Scrn Not Detected (NotDetected) U Benzodiazepines Scrn Not Detected (NotDetected) Urine Cocaine Screen Not Detected (NotDetected) U Marijuana (THC) Screen Not Detected (NotDetected) Serum Alcohol mg/dL - EKG Data -: EKG Interpreted by Me EKG shows normal: sinus rhythm, intervals Rate: normal EKG Comments: Sinus rhythm 85 bpm Normal intervals for gender, right axis deviation, no ST elevations or depressions Critical Care Time Critical Care Time: Yes Total Critical Care Time: 45 Critical Care Time: Critical care time spent obtaining history, examining patient, reexamination of patient, discussion with specialists, ordering and interpreting labs and imaging, goals of care discussion with patient and family Disposition Clinical Impression: Hepatic encephalopathy, MAHIN (acute kidney injury) Disposition: ADMITTED IP TO THIS [facility] Condition: Poor
[2023-12-13 16:36] LABS: Glucose,Whole Blood 114 mg/dL (70-110)
[2023-12-13 17:00] LABS: Anisocytosis Slight; Basophils % (A) 0 %; Eosinophils # (A) 0.1 k/uL (0-0.7); Eosinophils % (A) 1 %; HGB 13.9 gm/dL (13.0-17.5); Lymphocytes # (A) 0.8 k/uL (1.0-4.8); Lymphocytes % (A) 7 %; MCH 32.7 pg (25.0-35.0); MCHC 33.8 g/dL (31.0-37.0); MCV 96.7 fL (80.0-100.0); Macrocytosis Slight; Mean Platelet Volume 10.6; Monocytes # (A) 0.8 k/uL (0-1.0); Monocytes % (A) 6 %; Neutrophils # (A) 10.5 k/uL (1.3-7.7); Neutrophils % (A) 83 %; Platelet Count 267 k/uL (150-450); Poikilocytosis Slight; RBC 4.24 m/uL (4.30-5.90); RDW 19.6 % (11.5-15.5); WBC 12.6 k/uL (3.8-10.6)
[2023-12-13 17:25] LABS: Partial Thromboplastin Time 65.6 sec (22.0-30.0)
[2023-12-13 17:46] LABS: Lactic Acid, Venous 9.6 mmol/L (0.7-2.0)
[2023-12-13 17:53] LABS: AST 405 U/L (17-59); Acetaminophen <10.0 ug/mL; African American GFR (CKD) 12 (>60 ml/min/1.73 sqM); Albumin 2.8 g/dL (3.5-5.0); Alcohol 10 mg/dL; Calcium 7.3 mg/dL (8.4-10.2); Chloride 97 mmol/L (98-107); Glucose 108 mg/dL (74-99); Lipase 172 U/L (23-300); Magnesium 2.7 mg/dL (1.6-2.3); Non-African American GFR(CKD) 10 (>60 ml/min/1.73 sqM); Potassium 3.8 mmol/L (3.5-5.1); Salicylate <1.0 mg/dL; Sodium 132 mmol/L (137-145); Total Protein 6.3 g/dL (6.3-8.2)
[2023-12-13 18:01] LABS: NT-Pro-B-Type Natriuretic Pept 4040 pg/mL
[2023-12-13 18:21] LABS: Carbon Dioxide <5 mmol/L (22-30)
[2023-12-13 18:22] LABS: Blood Urea Nitrogen 115 mg/dL (9-20); Total Bilirubin 33.2 mg/dL (0.2-1.3)
[2023-12-13 18:23] LABS: ALT 136 U/L (4-49); Alkaline Phosphatase 1116 U/L (38-126)
--- NOTE | 2023-12-13 18:55 | US ---
EXAMINATION TYPE: US venous doppler duplex LE BI DATE OF EXAM: 12/13/2023 6:03 PM COMPARISON: NONE CLINICAL INDICATION: Male, 73 years old with history of Bilateral LE swelling; Liver CA, jaundice, un able to lay down or recline in chair, no h/o dvt, edema has increased over last 24 hours SIDE PERFORMED: Bilateral TECHNIQUE: The lower extremity deep venous system is examined utilizing real time linear array sonog david with graded compression, doppler sonography and color-flow sonography. VESSELS IMAGED: Common Femoral Vein Deep Femoral Vein Greater Saphenous Vein * Femoral Vein Popliteal Vein Small Saphenous Vein * Proximal Calf Veins (* superficial vessels) Very limited, patient cannot get into a bed, is sitting upright in recliner, cannot recline, known liver CA, jaundice with weeping edematous legs, had to lift pants up to thigh Right Leg: Negative for DVT- rouleaux flow seen within popliteal vein - color flow seen Left Leg: Negative for DVT - rouleaux flow within popliteal vein - color flow seen IMPRESSION: Grayscale, color doppler, spectral doppler imaging performed of the deep veins of the lo wer extremities. There is normal flow, compressibility, vascular waveforms.
[2023-12-13] MEDS: traMADol 50 MG TAB PO STA (19:21)
[2023-12-13] MEDS: SODIUM BICARB 8.4% 50 ML SYR (1 MEQ/ML) IV STA ×4 (19:25→19:37)
[2023-12-13] MEDS: DEXTROSE 5% IN WATER 1,000 ML with SODIUM BICARB (1 MEQ/ML) 150 ML IV SCH ×2 (19:36→19:44)
[2023-12-13] MEDS: SODIUM CHLORIDE 0.9% 1,000 ML IV ONE (21:03)
--- NOTE | 2023-12-13 21:03 | CT ---
EXAMINATION TYPE: CT brain wo con DATE OF EXAM: 12/13/2023 COMPARISON: HISTORY: AMS CT DLP: Combined DLP of mGycm Unenhanced CT of the brain was performed. The ventricles, basal cisterns and sulci overlying the cerebral convexities demonstrate mild enlargem ent. There is no evidence for intracranial hemorrhage or sulcal effacement. There is decreased attenuation about the periventricular white matter and deep white matter of both c erebral hemispheres, compatible with chronic small vessel ischemia. Differential diagnosis does inclu de demyelination. No mass effects are seen.No midline shift. Osseous calvarium is intact. If symptoms persist consider MRI. IMPRESSION: 1. Age related atrophic and chronic small vessel ischemic change without acute intracranial process s een at this time.
--- NOTE | 2023-12-13 21:14 | XR ---
EXAMINATION TYPE: XR chest 2V DATE OF EXAM: 12/13/2023 COMPARISON: NONE HISTORY: Shortness of breath TECHNIQUE: Frontal and lateral views of the chest are obtained. FINDINGS: Scattered senescent parenchymal changes noted. Hyperinflation compatible with COPD. No evidence for infiltrate. No evidence for atelectasis. Heart size is stable. Mediastinal structures are stable and grossly unremarkable. No evidence for hilar prominence. Degenerative changes dorsal spine. IMPRESSION: 1. No evidence for acute pulmonary disease.
[2023-12-13 21:22] LABS: Amorphous Sediment,Urine Moderate /hpf; Appearance,Urine Cloudy (Clear); Bilirubin,Urine 3+ (Negative); Blood,Urine Small (Negative); Color,Urine Dark Brown; Glucose,Urine (UA) Trace (Negative); Hyaline Casts,Urine 3 /lpf (0-2); Ketones,Urine Negative (Negative); Leukocyte Esterase,Urine Negative (Negative); Nitrite,Urine Negative (Negative); PH, Urine 5.5 (5.0-8.0); Protein,Urine 1+ (Negative); RBC,Urine 6 /hpf (0-5); Specific Gravity,Urine 1.013 (1.001-1.035); Urobilinogen,Urine <2.0 mg/dL (<2.0); WBC,Urine 5 /hpf (0-5)
[2023-12-13] MEDS ORDERED: NALOXONE 0.4 MG/ML 1 ML VIAL IV PRN (21:27)
--- NOTE | 2023-12-13 21:37 | CT ---
EXAMINATION TYPE: CT abdomen pelvis wo con DATE OF EXAM: 12/13/2023 COMPARISON: 10/17/2023 HISTORY: Abdominal distention and pain. CT DLP: Combined DLP of 1702.2 mGycm Examination of the solid and hollow viscera is limited given the lack of contrast. FINDINGS: LUNG BASES: No evidence for nodule. No evidence for infiltrate. LIVER/GB: The liver is enlarged. There is evidence of glass ascites about the liver edge. Hyperdense lesion is noted which may reflect hemangioma measuring 2 cm. No evidence for pneumoperitoneum. PANCREAS: No pancreatic mass identified. No inflammatory process seen. SPLEEN: No evidence for splenomegaly. No intrasplenic lesions seen. ADRENALS: No adrenal nodules identified. No evidence for thickening. KIDNEYS: No evidence for renal mass. No nephrolithiasis. No hydronephrosis. Hepatic cysts noted. STACI L: Appendix has a normal appearance. No evidence of bowel obstruction. No inflammatory process. Lymph nodes: No evidence for adenopathy greater than 1 cm. Abdominal aorta: Atheromatous changes seen. No evidence for aneurysm. Genital organs: Prostate calcifications seen. Other: Degenerative changes lumbar spine. IMPRESSION: HEPATOMEGALY WITH PROBABLE HEMANGIOMA. PROSTATE CALCIFICATIONS. SMALL AMOUNT OF ASCITES.
[2023-12-13 21:52] LABS: Amphetamine Screen,Urine Not Detected (NotDetected); Barbiturate Screen,Urine Not Detected (NotDetected); Benzodiazepines Screen,Urine Not Detected (NotDetected); Cocaine Screen,Urine Not Detected (NotDetected); Methadone Screen, Urine Not Detected (NotDetected); Opiate Screen,Urine Not Detected (NotDetected); Oxycodone Screen, Urine Not Detected (NotDetected); Phencyclidine Screen,Urine Not Detected (NotDetected); Tricyclic Antidepressant,Urine Not Detected (NotDetected); Urn Cannabinoid Scrn Not Detected (NotDetected)
[2023-12-13] MEDS ORDERED: FUROSEMIDE 10 MG/ML 2 ML VIAL IV STA (22:12)
[2023-12-13] MEDS ORDERED: FUROSEMIDE 10 MG/ML 4 ML VIAL IV STA (22:15)
[2023-12-13] MEDS: FUROSEMIDE 10 MG/ML 10 ML VIAL IV STA (22:22)
[2023-12-13] MEDS: FUROSEMIDE 10 MG/ML 2 ML VIAL IV ONE (22:39)
[2023-12-14] MEDS: traMADol 50 MG TAB PO SCH (01:52)
[2023-12-14 07:29] LABS: Anisocytosis Slight; Basophils % (A) 0 %; Eosinophils % (A) 0 %; HCT 38.7 % (39.0-53.0); Lymphocytes # (A) 1.3 k/uL (1.0-4.8); Lymphocytes % (A) 10 %; MCH 31.9 pg (25.0-35.0); MCHC 33.6 g/dL (31.0-37.0); Macrocytosis Slight; Mean Platelet Volume 10.5; Monocytes # (A) 0.8 k/uL (0-1.0); Monocytes % (A) 6 %; Neutrophils # (A) 10.5 k/uL (1.3-7.7); Neutrophils % (A) 80 %; Platelet Count 249 k/uL (150-450); Poikilocytosis Slight; RBC 4.07 m/uL (4.30-5.90); RDW 19.9 % (11.5-15.5)
[2023-12-14 07:42] LABS: INR 2.9 (<1.2); Prothrombin Time 28.7 sec (10.0-12.5)
[2023-12-14 08:04] LABS: AST 434 U/L (17-59); African American GFR (CKD) 11 (>60 ml/min/1.73 sqM); Albumin 2.5 g/dL (3.5-5.0); Anion Gap 27 mmol/L; Calcium 6.7 mg/dL (8.4-10.2); Carbon Dioxide 11 mmol/L (22-30); Chloride 96 mmol/L (98-107); Glucose 107 mg/dL (74-99); Magnesium 2.5 mg/dL (1.6-2.3); Non-African American GFR(CKD) 10 (>60 ml/min/1.73 sqM); Potassium 3.5 mmol/L (3.5-5.1); Sodium 134 mmol/L (137-145)
[2023-12-14 08:12] LABS: Blood Urea Nitrogen 120 mg/dL (9-20); Phosphorus 9.4 mg/dL (2.5-4.5)
[2023-12-14 08:13] LABS: ALT 127 U/L (4-49); Alkaline Phosphatase 1066 U/L (38-126); Total Bilirubin 31.5 mg/dL (0.2-1.3); Total Protein 5.7 g/dL (6.3-8.2)
[2023-12-14] MEDS ORDERED: FAMOTIDINE 20 MG TAB PO SCH (09:00)
[2023-12-14] MEDS: DOCUSATE 100 MG CAP PO SCH (09:30)
[2023-12-14] MEDS: FAMOTIDINE 20 MG TAB PO SCH (09:30)
--- NOTE | 2023-12-14 11:38 | P.CNPUL ---
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 He had subsequently undergone chemo and radiation treatments and a PET scan in May 2022 was reportedly clear. August 2023 revealed no suspicious changes for local recurrence of the right tonsil. There is increasing SUV values through multiple metastatic lesions including bone and liver. He did not undergo any further treatment. He was actually to be placed in hospice today according to his . However he was having increasing lower extremity edema and weeping and altered mental status and she brought him here to the emergency room yesterday. CT scan of the brain revealed age-related atrophic and chronic small vessel ischemic change without acute intracranial process. Venous Doppler of the bilateral lower extremities ruled out DVT. Chest x-ray reveals no acute pulmonary process. CT scan of the abdomen revealed hyperdense lesion noted in the liver measuring 2 cm. Small amount of ascites. White count 3.13.0. Hemoglobin 13.0. Platelets 249. INR 2.9. Sodium 134. Potassium 3.5. Bicarb 11. BUN 120. Creatinine 5.41. Glucose 107. AST 434. ALT 127. Alk phos 1066. He is seen today in consultation in the emergency department. He is being considered for ICU placement. He is maintaining good O2 saturations in the high 90s on room air. He has been afebrile. Hemodynamically stable. Review of Systems REVIEW OF SYSTEMS: CONSTITUTIONAL: Denies any recent significant weight loss or weight gain. EYES: Denies change in vision. EARS, NOSE, MOUTH, THROAT: Denies headaches, denies sore throat. CARDIOVASCULAR: Denies chest pain, palpitations or syncopal episodes. RESPIRATORY: Denies shortness of breath, cough, congestion or hemoptysis. GASTROINTESTINAL: Positive for abdominal pain GENITOURINARY: Denies hematuria, denies infections. MUSKULOSKELETAL: Positive for lower extremity swelling. INTEGUMENTARY: Denies rash, denies eczema. NEUROLOGICAL: Positive for altered mental status. PSYCHIATRIC: Denies anxiety, denies depression. HEMATOLOGIC/LYMPHATIC: Denies anemia, denies enlarged lymph nodes. Past Medical History Past Medical History: Cancer, Hyperlipidemia Additional Past Medical History / Comment(s): tonsil cancer into lymph nodes 2021 radiation and chemo (last 02/28/22) clear pet scan 05/2022. repeat PET scan 03/[address] CT. per tumor to back of head that is uncomfortable and recent pain to side ( unspecified) History of Any Multi-Drug Resistant Organisms: None Reported Past Surgical History: Appendectomy Additional Past Surgical History / Comment(s): egd, Past Anesthesia/Blood Transfusion Reactions: No Reported Reaction Past Psychological History: No Psychological Hx Reported Smoking Status: Former smoker Past Alcohol Use History: None Reported Past Drug Use History: None Reported - Past Family History Sister(s) Family Medical History: Cancer Father Family Medical History: Cancer Additional Family Medical History / Comment(s): lung Mother Family Medical History: Coronary Artery Disease (CAD) Medications and Allergies Home Medications Medication Instructions Recorded Confirmed Type Docusate [Colace] 100 mg PO DAILY 12/13/23 12/13/23 History Furosemide [Lasix] 20 mg PO DAILY 12/13/23 12/13/23 History Hydrocortisone Cream 1 applic TOPICAL TID PRN 12/13/23 12/13/23 History [Hydrocortisone 2.5% Cream] Lidocaine-Prilocaine Cream [Emla 1 applic TOPICAL DIRECTED PRN 12/13/23 12/13/23 History Cream 2.5%/2.5%] ondansetron HCL [Ondansetron HCl] 8 mg PO Q6H PRN 12/13/23 12/13/23 History traMADol HCL 25 mg PO Q6H 12/13/23 12/13/23 History Allergies Allergy/AdvReac Type Severity Reaction Status Date / Time No Known Allergies Allergy Verified 12/13/23 19:54 Physical Exam Vitals: Vital Signs Temp Pulse Resp BP Pulse Ox 12/14/23 09:31 89 18 99/57 98 12/14/23 07:10 95 18 103/69 99 12/14/23 07:00 106/69 12/14/23 05:43 87 14 95/64 98 12/14/23 04:30 92 18 104/69 99 12/14/23 03:15 90 18 93/64 98 12/14/23 02:00 89 16 97/62 98 12/14/23 00:37 92 18 90/60 99 12/13/23 23:08 90 16 110/66 99 12/13/23 22:00 92 16 107/72 98 12/13/23 21:15 89 14 121/70 100 12/13/23 21:00 90 20 121/73 97 12/13/23 20:49 82 14 108/70 98 12/13/23 20:35 80 14 77/51 99 12/13/23 15:37 98.6 F 90 16 94/62 100 Intake and Output 12/13/23 12/14/23 12/14/23 22:59 06:59 14:59 Output Total 100 Balance -100 Output: Urine 100 Uretheral (Perez) 100 Other: Weight 73.482 kg GENERAL EXAM: Alert, 73-year-old male, on room air, fairly comfortable in no apparent distress. HEAD: Normocephalic. EYES: Normal reaction of pupils, equal size. NOSE: Clear with pink turbinates. THROAT: No erythema or exudates. NECK: No masses, no JVD. CHEST: No chest wall deformity. LUNGS: Equal air entry with no crackles, wheeze, rhonchi or dullness. CVS: S1 and S2 normal with no audible murmur, regular rhythm. ABDOMEN: No hepatosplenomegaly, normal bowel sounds, no guarding or rigidity. SPINE: No scoliosis or deformity SKIN: No rashes CENTRAL NERVOUS SYSTEM: No focal deficits, tone is normal in all 4 extremities. EXTREMITIES: There 2+ peripheral edema and some weeping of the lower extremities. No clubbing, no cyanosis. Peripheral pulses are intact. Results - Laboratory Findings CBC and BMP: 12/14/23 07:00 12/14/23 07:00 PT/INR, D-dimer PT 28.7 sec (10.0-12.5) H 12/14/23 07:00 INR 2.9 (<1.2) H 12/14/23 07:00 Abnormal lab findings: Abnormal Labs 12/13/23 12/13/23 12/13/23 16:01 16:01 16:01 WBC 12.6 H RBC 4.24 L Hct RDW 19.6 H Neutrophils # 10.5 H Lymphocytes # 0.8 L PT 20.0 H INR 2.0 H APTT 65.6 H Sodium 132 L Chloride 97 L Carbon Dioxide <5 L* BUN 115 H* Creatinine 5.14 H Glucose 108 H POC Glucose (mg/dL) Plasma Lactic Acid Irving Calcium 7.3 L Phosphorus Magnesium 2.7 H Total Bilirubin 33.2 H* AST 405 H ALT 136 H Alkaline Phosphatase 1116 H Ammonia Troponin I Total Protein Albumin 2.8 L Urine Protein Urine Glucose (UA) Urine Blood Urine Bilirubin Urine RBC Amorphous Sediment Hyaline Casts 12/13/23 12/13/23 12/13/23 16:01 16:02 16:35 WBC RBC Hct RDW Neutrophils # Lymphocytes # PT INR APTT Sodium Chloride Carbon Dioxide BUN Creatinine Glucose POC Glucose (mg/dL) 114 H Plasma Lactic Acid Irving 9.6 H* Calcium Phosphorus Magnesium Total Bilirubin AST ALT Alkaline Phosphatase Ammonia 73 H Troponin I 0.049 H* Total Protein Albumin Urine Protein Urine Glucose (UA) Urine Blood Urine Bilirubin Urine RBC Amorphous Sediment Hyaline Casts 12/13/23 12/13/23 12/13/23 18:56 19:50 21:00 WBC RBC Hct RDW Neutrophils # Lymphocytes # PT INR APTT 65.3 H Sodium Chloride Carbon Dioxide BUN Creatinine Glucose POC Glucose (mg/dL) Plasma Lactic Acid Irving Calcium Phosphorus Magnesium Total Bilirubin AST ALT Alkaline Phosphatase Ammonia Troponin I 0.044 H* Total Protein Albumin Urine Protein 1+ H Urine Glucose (UA) Trace H Urine Blood Small H Urine Bilirubin 3+ H Urine RBC 6 H Amorphous Sediment Moderate H Hyaline Casts 3 H 12/13/23 12/14/23 12/14/23 22:15 01:15 04:43 WBC RBC Hct RDW Neutrophils # Lymphocytes # PT INR APTT Sodium Chloride Carbon Dioxide BUN Creatinine Glucose POC Glucose (mg/dL) Plasma Lactic Acid Irving 9.1 H* 9.2 H* 9.6 H* Calcium Phosphorus Magnesium Total Bilirubin AST ALT Alkaline Phosphatase Ammonia Troponin I Total Protein Albumin Urine Protein Urine Glucose (UA) Urine Blood Urine Bilirubin Urine RBC Amorphous Sediment Hyaline Casts 12/14/23 12/14/23 12/14/23 07:00 07:00 07:00 WBC 13.0 H RBC 4.07 L Hct 38.7 L RDW 19.9 H Neutrophils # 10.5 H Lymphocytes # PT 28.7 H INR 2.9 H APTT Sodium 134 L Chloride 96 L Carbon Dioxide 11 L BUN 120 H* Creatinine 5.41 H Glucose 107 H POC Glucose (mg/dL) Plasma Lactic Acid Irving Calcium 6.7 L Phosphorus 9.4 H* Magnesium 2.5 H Total Bilirubin 31.5 H* AST 434 H ALT 127 H Alkaline Phosphatase 1066 H Ammonia Troponin I Total Protein 5.7 L Albumin 2.5 L Urine Protein Urine Glucose (UA) Urine Blood Urine Bilirubin Urine RBC Amorphous Sediment Hyaline Casts 12/14/23 12/14/23 09:27 09:27 WBC RBC Hct RDW Neutrophils # Lymphocytes # PT INR APTT Sodium Chloride Carbon Dioxide BUN Creatinine Glucose POC Glucose (mg/dL) Plasma Lactic Acid Irving 8.5 H* Calcium Phosphorus Magnesium Total Bilirubin AST ALT Alkaline Phosphatase Ammonia 50 H Troponin I Total Protein Albumin Urine Protein Urine Glucose (UA) Urine Blood Urine Bilirubin Urine RBC Amorphous Sediment Hyaline Casts - Diagnostic Findings Chest x-ray: image reviewed Assessment and Plan Assessment: Acute kidney injury suspect secondary to dehydration, hypotension Lower extremity edema with weeping Abdominal discomfort Coagulopathy with elevated liver enzymes and INR Hypercalcemia Hyperphosphatemia 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 on PET scan in August 2023 History of tonsillar cancer diagnosed in October 2021 treated with chemotherapy and radiation therapy Plan: The patient was seen and evaluated CT scan of the brain, chest x-ray, labs and medications reviewed Dopplers of the lower extremities ruled out DVT Check an ammonia level Currently stable and on room air The patient was to be placed in hospice at home today Will place a hospice consult Assure adequate pain control DNR/DNI CODE STATUS No plans for ICU placement Admit to the oncology unit We will continue to follow and make further recommendations based on his clinical status I have personally seen and examined the patient, performed the documentation and the assessment and plan as written. Number of minutes spent on the visit: 20.
--- NOTE | 2023-12-14 12:30 | P.NPCON ---
History of Present Illness - Reason for Consult acute renal failure - History of Present Illness Reason for consultation: Acute kidney injury History of present illness: Patient is a 73-year-old male seen in renal consultation for acute kidney injury. Patient's creatinine dated November 18, 2023 was 0.6 and 2.49 dated December 08, 2023. Creatinine today is up to 5.4. Patient has history of throat cancer and has undergone chemotherapy and radiation in the past. Patient was initially diagnosed in summer 2021 and subsequently underwent treatment. In 2022 he was found to have metastatic disease. Patient has been on chemotherapeutic agents but has now been discontinued due to inability to tolerate from side effects as well as debility. Patient's oral intake has been quite poor. Patient came to the hospital due to worsening edema in the lower extremities. No hydronephrosis noted on CAT scan. Patient was noted to be severely acidotic with a bicarb level of less than 5. He is currently receiving bicarb drip and also received amps of sodium bicarb IV push. Bicarb level is now improved to 11. Patient is a poor historian. He is quite lethargic and barely speak or communicate. is present at bedside. No use of NSAIDs. No family history of renal disease. No history of coronary artery disease. Vital signs are stable. General: Resting in bed. Lethargic. HEENT: Head exam is unremarkable. On nasal cannula. LUNGS: No audible rhonchi or wheezes. HEART: Rate and Rhythm are regular. ABDOMEN: Distention noted. EXTREMITITES: 2+ edema. Generalized jaundice noted. Past Medical History Past Medical History: Cancer, Hyperlipidemia Additional Past Medical History / Comment(s): tonsil cancer into lymph nodes 2021 radiation and chemo (last 02/28/22) clear pet scan 05/2022. repeat PET scan 03/[address] generalized [address] cell cancer[address] CT. per tumor to back of head that is uncomfortable and recent pain to side ( unspecified) History of Any Multi-Drug Resistant Organisms: None Reported Past Surgical History: Appendectomy Additional Past Surgical History / Comment(s): egd, Past Anesthesia/Blood Transfusion Reactions: No Reported Reaction Past Psychological History: No Psychological Hx Reported Smoking Status: Former smoker Past Alcohol Use History: None Reported Past Drug Use History: None Reported - Past Family History Sister(s) Family Medical History: Cancer Father Family Medical History: Cancer Additional Family Medical History / Comment(s): lung Mother Family Medical History: Coronary Artery Disease (CAD) Medications and Allergies Home Medications Medication Instructions Recorded Confirmed Type Docusate [Colace] 100 mg PO DAILY 12/13/23 12/13/23 History Furosemide [Lasix] 20 mg PO DAILY 12/13/23 12/13/23 History Hydrocortisone Cream 1 applic TOPICAL TID PRN 12/13/23 12/13/23 History [Hydrocortisone 2.5% Cream] Lidocaine-Prilocaine Cream [Emla 1 applic TOPICAL DIRECTED PRN 12/13/23 12/13/23 History Cream 2.5%/2.5%] ondansetron HCL [Ondansetron HCl] 8 mg PO Q6H PRN 12/13/23 12/13/23 History traMADol HCL 25 mg PO Q6H 12/13/23 12/13/23 History Allergies Allergy/AdvReac Type Severity Reaction Status Date / Time No Known Allergies Allergy Verified 12/13/23 19:54 Physical Exam Vitals: Vital Signs Temp Pulse Resp BP Pulse Ox 12/14/23 09:31 89 18 99/57 98 12/14/23 07:10 95 18 103/69 99 12/14/23 07:00 106/69 12/14/23 05:43 87 14 95/64 98 12/14/23 04:30 92 18 104/69 99 12/14/23 03:15 90 18 93/64 98 12/14/23 02:00 89 16 97/62 98 12/14/23 00:37 92 18 90/60 99 12/13/23 23:08 90 16 110/66 99 12/13/23 22:00 92 16 107/72 98 12/13/23 21:15 89 14 121/70 100 12/13/23 21:00 90 20 121/73 97 12/13/23 20:49 82 14 108/70 98 12/13/23 20:35 80 14 77/51 99 12/13/23 15:37 98.6 F 90 16 94/62 100 Intake and Output 12/13/23 12/14/23 12/14/23 22:59 06:59 14:59 Output Total 100 Balance -100 Output: Urine 100 Uretheral (Perez) 100 Other: Weight 73.482 kg Results - Lab Results Most recent lab results Calcium 6.7 mg/dL (8.4-10.2) L 12/14/23 07:00 Phosphorus 9.4 mg/dL (2.5-4.5) H* 12/14/23 07:00 Magnesium 2.5 mg/dL (1.6-2.3) H 12/14/23 07:00 12/14/23 07:00 12/14/23 07:00 Assessment and Plan Plan: Assessment: 1. Acute kidney injury secondary to ATN secondary to hypotension, poor intake. Creatinine 5.4 today. Baseline creatinine 0.6 from November 2023. No hydronephrosis noted on CAT scan. 2. Lower extremity edema. 3. Metabolic acidosis secondary to acute kidney injury and lactic acidosis. 4. Throat cancer with metastatic disease. 5. Hyperphosphatemia secondary to acute kidney injury. Plan: Maintain bicarb drip. 4 A of sodium bicarb IV push today. Add IV Lasix 60 mg twice daily. Maintain Perez catheter. Discussed need for renal replacement therapy due to severely impaired renal function, oliguria and edema. Family considering hospice. Will also consult oncology. Continue to assess on daily basis. Prognosis guarded. Thank you for the consultation. I will continue to follow the patient with you during his hospital stay.
--- NOTE | 2023-12-14 12:49 | P.HPIM ---
History of Present Illness H&P Date: 12/14/23 History of present illness; patient is 73-year-old gentleman with past medical history significant for metastatic throat cancer who presented to the ER for altered mental status and abdominal pain. Patient was brought in by his who stated that patient normally follows up with Dr. Webster from oncology and was recently told that the patient has metastasis to his abdominal viscera. Patient has noticed that for the last few days he has been getting more short of breath and has swelling of lower extremities. Patient has been complaining of generalized abdominal pain. There is complaint of loss of appetite. Patient denies any chest pain. There is no complaint of palpitation. There is no complaint of fever or chills. Initial lab work done in the ER showed WBC 12.6, hemoglobin 13.9, platelet count 267, PT 20, INR 2, sodium 132, potassium 3.8, BUN 115, creatinine 5.14, glucose 104, lactate 9.6, calcium 7.3, magnesium 2.7, bilirubin 33.2, AST 405, ALT 136, troponin 0.049 proBNP 4040 EKG done in the ER showed heart rate of 85 , no ST segment elevation or depression seen, no T-wave inversions seen. Chest x-ray done in the ER no evidence for acute pulm disease CT head done showed age-related atrophic and chronic small vessel ischemic changes without acute intracranial process Duplex ultrasound of lower extremities done showed no evidence of DVT CT abdominal pelvis done showed hepatomegaly with probable hemangioma, prostate calcifications Initially plan was for patient to be admitted to ICU but family are wanting patient to be transition to hospice so hospice consult was placed while in the ER Patient admitted to internal medicine service REVIEW OF SYSTEMS: CONSTITUTIONAL: As mentioned above HEENT: No recent visual problems or hearing problems. Denied any sore throat. CARDIOVASCULAR: Mentioned above PULMONARY: As mentioned above. GASTROINTESTINAL: No diarrhea, no nausea, no vomiting, NEUROLOGICAL: No headaches, no weakness, no numbness. HEMATOLOGICAL: Denies any bleeding or petechiae. GENITOURINARY: Denies any burning micturition, frequency, or urgency. MUSCULOSKELETAL/RHEUMATOLOGICAL: Denies any joint pain, swelling, or any muscle pain. ENDOCRINE: Denies any polyuria or polydipsia. The rest of the 14-point review of systems is negative. PHYSICAL EXAMINATION: GENERAL: The patient is alert, chronically ill looking HEENT: Pupils are round and equally reacting to light. Scleral icterus seen CARDIOVASCULAR: S1 and S2 present. No murmurs, rubs, or gallops. PULMONARY: Chest is clear to auscultation, no wheezing or crackles. ABDOMEN: Soft, nontender, nondistended, normoactive bowel sounds. No palpable organomegaly. MUSCULOSKELETAL: No joint swelling or deformity. EXTREMITIES: No cyanosis, clubbing, or pedal edema. NEUROLOGICAL: Gross neurological examination did not reveal any focal deficits. SKIN: No rashes. 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 Continue same treatment. Continue with symptomatic treatment. Resume home medication. Monitor labs and vitals. DVT and GI prophylaxis. Further recommendations as per clinical course of the patient Dictation was produced using [employer] dictation software. please excuse any grammatical, word or spelling errors. Past Medical History Past Medical History: Cancer, Hyperlipidemia Additional Past Medical History / Comment(s): tonsil cancer into lymph nodes radiation and chemo (last 02/28/22) clear pet scan 05/2022. repeat PET scan 03/[address] CT[address] per tumor to back of head that is uncomfortable and recent pain to side ( unspecified) History of Any Multi-Drug Resistant Organisms: None Reported Past Surgical History: Appendectomy Additional Past Surgical History / Comment(s): egd, Past Anesthesia/Blood Transfusion Reactions: No Reported Reaction Past Psychological History: No Psychological Hx Reported Smoking Status: Former smoker Past Alcohol Use History: None Reported Past Drug Use History: None Reported - Past Family History Sister(s) Family Medical History: Cancer Father Family Medical History: Cancer Additional Family Medical History / Comment(s): lung Mother Family Medical History: Coronary Artery Disease (CAD) Medications and Allergies Home Medications Medication Instructions Recorded Confirmed Type Docusate [Colace] 100 mg PO DAILY 12/13/23 12/13/23 History Furosemide [Lasix] 20 mg PO DAILY 12/13/23 12/13/23 History Hydrocortisone Cream 1 applic TOPICAL TID PRN 12/13/23 12/13/23 History [Hydrocortisone 2.5% Cream] Lidocaine-Prilocaine Cream [Emla 1 applic TOPICAL DIRECTED PRN 12/13/23 12/13/23 History Cream 2.5%/2.5%] ondansetron HCL [Ondansetron HCl] 8 mg PO Q6H PRN 12/13/23 12/13/23 History traMADol HCL 25 mg PO Q6H 12/13/23 12/13/23 History Allergies Allergy/AdvReac Type Severity Reaction Status Date / Time No Known Allergies Allergy Verified 12/13/23 19:54 Physical Exam Vitals: Vital Signs Temp Pulse Resp BP Pulse Ox 12/14/23 09:31 89 18 99/57 98 12/14/23 07:10 95 18 103/69 99 12/14/23 07:00 106/69 12/14/23 05:43 87 14 95/64 98 12/14/23 04:30 92 18 104/69 99 12/14/23 03:15 90 18 93/64 98 12/14/23 02:00 89 16 97/62 98 12/14/23 00:37 92 18 90/60 99 12/13/23 23:08 90 16 110/66 99 12/13/23 22:00 92 16 107/72 98 12/13/23 21:15 89 14 121/70 100 12/13/23 21:00 90 20 121/73 97 12/13/23 20:49 82 14 108/70 98 12/13/23 20:35 80 14 77/51 99 12/13/23 15:37 98.6 F 90 16 94/62 100 Intake and Output 12/13/23 12/14/23 12/14/23 22:59 06:59 14:59 Output Total 100 Balance -100 Output: Urine 100 Uretheral (Perez) 100 Other: Weight 73.482 kg Results CBC & Chem 7: 12/14/23 07:00 12/14/23 07:00 Labs: Abnormal Lab Results - Last 24 Hours (Table) 12/13/23 12/13/23 12/13/23 Range/Units 16:01 16:01 16:01 WBC 12.6 H (3.8-10.6) k/uL RBC 4.24 L (4.30-5.90) m/uL Hct (39.0-53.0) % RDW 19.6 H (11.5-15.5) % Neutrophils # 10.5 H (1.3-7.7) k/uL Lymphocytes # 0.8 L (1.0-4.8) k/uL PT 20.0 H (10.0-12.5) sec INR 2.0 H (<1.2) APTT 65.6 H (22.0-30.0) sec Sodium 132 L (137-145) mmol/L Chloride 97 L (98-107) mmol/L Carbon Dioxide <5 L* (22-30) mmol/L BUN 115 H* (9-20) mg/dL Creatinine 5.14 H (0.66-1.25) mg/dL Glucose 108 H (74-99) mg/dL POC Glucose (mg/dL) (70-110) mg/dL Plasma Lactic Acid Irving (0.7-2.0) mmol/L Calcium 7.3 L (8.4-10.2) mg/dL Phosphorus (2.5-4.5) mg/dL Magnesium 2.7 H (1.6-2.3) mg/dL Total Bilirubin 33.2 H* (0.2-1.3) mg/dL AST 405 H (17-59) U/L ALT 136 H (4-49) U/L Alkaline Phosphatase 1116 H (38-126) U/L Ammonia (<30) umol/L Troponin I (0.000-0.034) ng/mL Total Protein (6.3-8.2) g/dL Albumin 2.8 L (3.5-5.0) g/dL Urine Protein (Negative) Urine Glucose (UA) (Negative) Urine Blood (Negative) Urine Bilirubin (Negative) Urine RBC (0-5) /hpf Amorphous Sediment (None) /hpf Hyaline Casts (0-2) /lpf 12/13/23 12/13/23 12/13/23 Range/Units 16:01 16:02 16:35 WBC (3.8-10.6) k/uL RBC (4.30-5.90) m/uL Hct (39.0-53.0) % RDW (11.5-15.5) % Neutrophils # (1.3-7.7) k/uL Lymphocytes # (1.0-4.8) k/uL PT (10.0-12.5) sec INR (<1.2) APTT (22.0-30.0) sec Sodium (137-145) mmol/L Chloride (98-107) mmol/L Carbon Dioxide (22-30) mmol/L BUN (9-20) mg/dL Creatinine (0.66-1.25) mg/dL Glucose (74-99) mg/dL POC Glucose (mg/dL) 114 H (70-110) mg/dL Plasma Lactic Acid Irving 9.6 H* (0.7-2.0) mmol/L Calcium (8.4-10.2) mg/dL Phosphorus (2.5-4.5) mg/dL Magnesium (1.6-2.3) mg/dL Total Bilirubin (0.2-1.3) mg/dL AST (17-59) U/L ALT (4-49) U/L Alkaline Phosphatase (38-126) U/L Ammonia 73 H (<30) umol/L Troponin I 0.049 H* (0.000-0.034) ng/mL Total Protein (6.3-8.2) g/dL Albumin (3.5-5.0) g/dL Urine Protein (Negative) Urine Glucose (UA) (Negative) Urine Blood (Negative) Urine Bilirubin (Negative) Urine RBC (0-5) /hpf Amorphous Sediment (None) /hpf Hyaline Casts (0-2) /lpf 12/13/23 12/13/23 12/13/23 Range/Units 18:56 19:50 21:00 WBC (3.8-10.6) k/uL RBC (4.30-5.90) m/uL Hct (39.0-53.0) % RDW (11.5-15.5) % Neutrophils # (1.3-7.7) k/uL Lymphocytes # (1.0-4.8) k/uL PT (10.0-12.5) sec INR (<1.2) APTT 65.3 H (22.0-30.0) sec Sodium (137-145) mmol/L Chloride (98-107) mmol/L Carbon Dioxide (22-30) mmol/L BUN (9-20) mg/dL Creatinine (0.66-1.25) mg/dL Glucose (74-99) mg/dL POC Glucose (mg/dL) (70-110) mg/dL Plasma Lactic Acid Irving (0.7-2.0) mmol/L Calcium (8.4-10.2) mg/dL Phosphorus (2.5-4.5) mg/dL Magnesium (1.6-2.3) mg/dL Total Bilirubin (0.2-1.3) mg/dL AST (17-59) U/L ALT (4-49) U/L Alkaline Phosphatase (38-126) U/L Ammonia (<30) umol/L Troponin I 0.044 H* (0.000-0.034) ng/mL Total Protein (6.3-8.2) g/dL Albumin (3.5-5.0) g/dL Urine Protein 1+ H (Negative) Urine Glucose (UA) Trace H (Negative) Urine Blood Small H (Negative) Urine Bilirubin 3+ H (Negative) Urine RBC 6 H (0-5) /hpf Amorphous Sediment Moderate H (None) /hpf Hyaline Casts 3 H (0-2) /lpf 12/13/23 12/14/23 12/14/23 Range/Units 22:15 01:15 04:43 WBC (3.8-10.6) k/uL RBC (4.30-5.90) m/uL Hct (39.0-53.0) % RDW (11.5-15.5) % Neutrophils # (1.3-7.7) k/uL Lymphocytes # (1.0-4.8) k/uL PT (10.0-12.5) sec INR (<1.2) APTT (22.0-30.0) sec Sodium (137-145) mmol/L Chloride (98-107) mmol/L Carbon Dioxide (22-30) mmol/L BUN (9-20) mg/dL Creatinine (0.66-1.25) mg/dL Glucose (74-99) mg/dL POC Glucose (mg/dL) (70-110) mg/dL Plasma Lactic Acid Irving 9.1 H* 9.2 H* 9.6 H* (0.7-2.0) mmol/L Calcium (8.4-10.2) mg/dL Phosphorus (2.5-4.5) mg/dL Magnesium (1.6-2.3) mg/dL Total Bilirubin (0.2-1.3) mg/dL AST (17-59) U/L ALT (4-49) U/L Alkaline Phosphatase (38-126) U/L Ammonia (<30) umol/L Troponin I (0.000-0.034) ng/mL Total Protein (6.3-8.2) g/dL Albumin (3.5-5.0) g/dL Urine Protein (Negative) Urine Glucose (UA) (Negative) Urine Blood (Negative) Urine Bilirubin (Negative) Urine RBC (0-5) /hpf Amorphous Sediment (None) /hpf Hyaline Casts (0-2) /lpf 12/14/23 12/14/23 12/14/23 Range/Units 07:00 07:00 07:00 WBC 13.0 H (3.8-10.6) k/uL RBC 4.07 L (4.30-5.90) m/uL Hct 38.7 L (39.0-53.0) % RDW 19.9 H (11.5-15.5) % Neutrophils # 10.5 H (1.3-7.7) k/uL Lymphocytes # (1.0-4.8) k/uL PT 28.7 H (10.0-12.5) sec INR 2.9 H (<1.2) APTT (22.0-30.0) sec Sodium 134 L (137-145) mmol/L Chloride 96 L (98-107) mmol/L Carbon Dioxide 11 L (22-30) mmol/L BUN 120 H* (9-20) mg/dL Creatinine 5.41 H (0.66-1.25) mg/dL Glucose 107 H (74-99) mg/dL POC Glucose (mg/dL) (70-110) mg/dL Plasma Lactic Acid Irving (0.7-2.0) mmol/L Calcium 6.7 L (8.4-10.2) mg/dL Phosphorus 9.4 H* (2.5-4.5) mg/dL Magnesium 2.5 H (1.6-2.3) mg/dL Total Bilirubin 31.5 H* (0.2-1.3) mg/dL AST 434 H (17-59) U/L ALT 127 H (4-49) U/L Alkaline Phosphatase 1066 H (38-126) U/L Ammonia (<30) umol/L Troponin I (0.000-0.034) ng/mL Total Protein 5.7 L (6.3-8.2) g/dL Albumin 2.5 L (3.5-5.0) g/dL Urine Protein (Negative) Urine Glucose (UA) (Negative) Urine Blood (Negative) Urine Bilirubin (Negative) Urine RBC (0-5) /hpf Amorphous Sediment (None) /hpf Hyaline Casts (0-2) /lpf 12/14/23 12/14/23 Range/Units 09:27 09:27 WBC (3.8-10.6) k/uL RBC (4.30-5.90) m/uL Hct (39.0-53.0) % RDW (11.5-15.5) % Neutrophils # (1.3-7.7) k/uL Lymphocytes # (1.0-4.8) k/uL PT (10.0-12.5) sec INR (<1.2) APTT (22.0-30.0) sec Sodium (137-145) mmol/L Chloride (98-107) mmol/L Carbon Dioxide (22-30) mmol/L BUN (9-20) mg/dL Creatinine (0.66-1.25) mg/dL Glucose (74-99) mg/dL POC Glucose (mg/dL) (70-110) mg/dL Plasma Lactic Acid Irving 8.5 H* (0.7-2.0) mmol/L Calcium (8.4-10.2) mg/dL Phosphorus (2.5-4.5) mg/dL Magnesium (1.6-2.3) mg/dL Total Bilirubin (0.2-1.3) mg/dL AST (17-59) U/L ALT (4-49) U/L Alkaline Phosphatase (38-126) U/L Ammonia 50 H (<30) umol/L Troponin I (0.000-0.034) ng/mL Total Protein (6.3-8.2) g/dL Albumin (3.5-5.0) g/dL Urine Protein (Negative) Urine Glucose (UA) (Negative) Urine Blood (Negative) Urine Bilirubin (Negative) Urine RBC (0-5) /hpf Amorphous Sediment (None) /hpf Hyaline Casts (0-2) /lpf
[2023-12-14] MEDS: SODIUM BICARB 8.4% 50 ML SYR (1 MEQ/ML) IV STA (13:04)
[2023-12-14] MEDS: FUROSEMIDE 10 MG/ML 10 ML VIAL IV SCH (13:10)
[2023-12-14] MEDS: MIDODRINE 5 MG TAB PO SCH (14:31)
[2023-12-15] MEDS ORDERED: LOPERAMIDE 2 MG CAP PO PRN (00:04)
--- NOTE | 2023-12-15 00:26 | P.CONS ---
History of Present Illness - Reason for Consult Consult date: 12/14/23 tonsilar cancer Requesting physician: Deepak Darnell - Chief Complaint FTT, weakness, altered mental status - History of Present Illness Patient is a 73 year old male with a significant history of metastatic tonsilar cancer. He is a patient of Dr. Webster. He initially presented with palpable left neck mass, noticed by his dentist, and was referred to Dr Suarez,CT soft tissue of neck done on 11/09/2021 revealed 3.3x3.2x2.5cm left tonsil mass,[address] up to 2.7 cm. On 11/14/2021,he underwent triple endoscopy,about 4x3 cm left tonsil mass was found,fixed and firmed. 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 On 11/30/2021,PET scan revealed anabel dence of bilateral cervical nodes involvement,there was nodular liver density of low SUV,non specific. Liver MRI on 01/17/2022 was negative. On 12/19/2021,he started carboplatin/taxol with XRT (no cisplatin due to hearing deficit),completed on 02/08/2022. Repeat PET scan on 05/03/2022 revealed no ac tive disease,complete response. Repeat CT neck/chest on 03/07/2023 revealed new 1.6 cm hepatic lesion and 3.6 cm splenic lesion. Repeat PET scan on 03/26/2023 revealed evidence of recurrence in neck,lung nodules, liver lesions, and osseous lesions. On 04/09/2023,biopsy of left neck lesion was positive for squamous cell carcinoma. On 05/01/2023,he started carbo/5FU/keytruda. Due to adverse reaction, he was then started on weekly taxol/carbo on 06/17/2023. On 08/24/2023,repeat PET scan showed significant disease progression in liver,osseous mets and subcutaneous right occipital lesion. On 09/09/2023,he started single agent opdivo. He completed palliative radiation to right occipital subcutaneous lesion on 09/30/2023. He developed jaundice and had significantly elevated LFT in October/2023, was admitted to [facility]. MRCP showed bulky and diffuse liver mets. He was seen by GI and was not felt to be a candidate for stenting. At his last f/u with Dr. Webster, his poor rognosis was discussed, and that he was not a candidate for additional systemic therapy. Palliative care/hospice were recomm ended, however, patient was not amendable to the same at that time. He was interested in having palliative radiation to his liver. He did f/u with rad onc last week, and had planned on palliative RT to liver on Friday. Patient presented to the emergency room for altered mental status, failure to thrive and bilateral lower extremity edema. states over the last 3 days patient has been having progressing symptoms and has had very little oral intake with progressing weakness. On admission chest x-ray showed no evidence for acute pulmonary processes. CT brain showed age-related atrophic and chronic small vessel ischemic changes without acute intracranial processes. CT abdomen pelvis without contrast showed hepatomegaly with probable hemangioma. Prostate calcifications and small ascites. Due to bilateral lower extremity edema bilateral lower extremity Dopplers were obtained which were negative for DVT. Labs reviewed. WBC 13.0, hemoglobin 13.0, platelets 249,000. Lactic acid elevated at 9.6. Kidney function significantly decreased, creatinine 5.41, GFR 10. BUN 120. Phosphorus 9.4, bilirubin 31.5, transaminitis noted. Both bilirubin and LFTs have continued to increase since clinic lab draw on 12/08/2023. Ammonia 50. Patient given 1 L normal saline bolus and IV Lasix. At today's visit patient is lethargic and falls asleep easily during conversation. is providing majority of HPI. Spouse states patient has had been having diarrhea over the last couple days approximately 6 episodes over the last 24 hours that have been blackish in color that initially started with maya blood on Friday. Review of Systems 10 point ROS is negative except as stated in the HPI Past Medical History Past Medical History: Cancer, Hyperlipidemia Additional Past Medical History / Comment(s): tonsil cancer into lymph nodes 2021 radiation and chemo (last 02/28/22) clear pet scan 05/2022. repeat PET scan 03/[address] generalized squamous cell cancer. CT. per tumor to back of head t hat is uncomfortable and recent pain to side ( unspecified) History of Any Multi-Drug Resistant Organisms: None Reported Past Surgical History: Appendectomy Additional Past Surgical History / Comment(s): egd, Past Anesthesia/Blood Transfusion Reactions: No Reported Reaction Past Psychological History: No Psychological Hx Reported Smoking Status: Former smoker Past Alcohol Use History: None Reported Past Drug Use History: None Reported - Past Family History Sister(s) Family Medical History: Cancer Father Family Medical History: Cancer Additional Family Medical History / Comment(s): lung Mother Family Medical History: Coronary Artery Disease (CAD) Medications and Allergies Home Medications Medication Instructions Recorded Confirmed Type Docusate [Colace] 100 mg PO DAILY 12/13/23 12/13/23 History Furosemide [Lasix] 20 mg PO DAILY 12/13/23 12/13/23 History Hydrocortisone Cream 1 applic TOPICAL TID PRN 12/13/23 12/13/23 History [Hydrocortisone 2.5% Cream] Lidocaine-Prilocaine Cream [Emla 1 applic TOPICAL DIRECTED PRN 12/13/23 12/13/23 History Cream 2.5%/2.5%] ondansetron HCL [Ondansetron HCl] 8 mg PO Q6H PRN 12/13/23 12/13/23 History traMADol HCL 25 mg PO Q6H 12/13/23 12/13/23 History Allergies Allergy/AdvReac Type Severity Reaction Status Date / Time No Known Allergies Allergy Verified 12/13/23 19:54 Physical Exam Vitals: Vital Signs Temp Pulse Resp BP Pulse Ox 12/14/23 09:31 89 18 99/57 98 12/14/23 07:10 95 18 103/69 99 12/14/23 07:00 106/69 12/14/23 05:43 87 14 95/64 98 12/14/23 04:30 92 18 104/69 99 12/14/23 03:15 90 18 93/64 98 12/14/23 02:00 89 16 97/62 98 12/14/23 00:37 92 18 90/60 99 12/13/23 23:08 90 16 110/66 99 12/13/23 22:00 92 16 107/72 98 12/13/23 21:15 89 14 121/70 100 12/13/23 21:00 90 20 121/73 97 12/13/23 20:49 82 14 108/70 98 12/13/23 20:35 80 14 77/51 99 12/13/23 15:37 98.6 F 90 16 94/62 100 Intake and Output 0712/14/23 12/14/23 22:59 06:59 14:59 Output Total 100 Balance -100 Output: Urine 100 Uretheral (Perez) 100 Other: Weight 73.482 kg - Constitutional General appearance: no acute distress - EENT Eyes: scleral icterus - Respiratory Respiratory: bilateral: diminished - Cardiovascular Rhythm: regular - Gastrointestinal General gastrointestinal: no tenderness - Integumentary Integumentary: no cyanotic, jaundiced - Neurologic lethargic - Musculoskeletal Musculoskeletal: generalized weakness Results CBC & Chem 7: 12/14/23 07:00 12/14/23 07:00 Labs: Abnormal Lab Results - Last 24 Hours (Table) 12/13/23 12/13/23 12/13/23 Range/Units 16:01 16:01 16:01 WBC 12.6 H (3.8-10.6) k/uL RBC 4.24 L (4.30-5.90) m/uL Hct (39.0-53.0) % RDW 19.6 H (11.5-15.5) % Neutrophils # 10.5 H (1.3-7.7) k/uL Lymphocytes # 0.8 L (1.0-4.8) k/uL PT 20.0 H (10.0-12.5) sec INR 2.0 H (<1.2) APTT 65.6 H (22.0-30.0) sec Sodium 132 L (137-145) mmol/L Chloride 97 L (98-107) mmol/L Carbon Dioxide <5 L* (22-30) mmol/L BUN 115 H* (9-20) mg/dL Creatinine 5.14 H (0.66-1.25) mg/dL Glucose 108 H (74-99) mg/dL POC Glucose (mg/dL) (70-110) mg/dL Plasma Lactic Acid Irving (0.7-2.0) mmol/L Calcium 7.3 L (8.4-10.2) mg/dL Phosphorus (2.5-4.5) mg/dL Magnesium 2.7 H (1.6-2.3) mg/dL Total Bilirubin 33.2 H* (0.2-1.3) mg/dL AST 405 H (17-59) U/L ALT 136 H (4-49) U/L Alkaline Phosphatase 1116 H (38-126) U/L Ammonia (<30) umol/L Troponin I (0.000-0.034) ng/mL Total Protein (6.3-8.2) g/dL Albumin 2.8 L (3.5-5.0) g/dL Urine Protein (Negative) Urine Glucose (UA) (Negative) Urine Blood (Negative) Urine Bilirubin (Negative) Urine RBC (0-5) /hpf Amorphous Sediment (None) /hpf Hyaline Casts (0-2) /lpf 12/13/23 12/13/23 12/13/23 Range/Units 16:01 16:02 16:35 WBC (3.8-10.6) k/uL RBC (4.30-5.90) m/uL Hct (39.0-53.0) % RDW (11.5-15.5) % Neutrophils # (1.3-7.7) k/uL Lymphocytes # (1.0-4.8) k/uL PT (10.0-12.5) sec INR (<1.2) APTT (22.0-30.0) sec Sodium (137-145) mmol/L Chloride (98-107) mmol/L Carbon Dioxide (22-30) mmol/L BUN (9-20) mg/dL Creatinine (0.66-1.25) mg/dL Glucose (74-99) mg/dL POC Glucose (mg/dL) 114 H (70-110) mg/dL Plasma Lactic Acid Irving 9.6 H* (0.7-2.0) mmol/L Calcium (8.4-10.2) mg/dL Phosphorus (2.5-4.5) mg/dL Magnesium (1.6-2.3) mg/dL Total Bilirubin (0.2-1.3) mg/dL AST (17-59) U/L ALT (4-49) U/L Alkaline Phosphatase (38-126) U/L Ammonia 73 H (<30) umol/L Troponin I 0.049 H* (0.000-0.034) ng/mL Total Protein (6.3-8.2) g/dL Albumin (3.5-5.0) g/dL Urine Protein (Negative) Urine Glucose (UA) (Negative) Urine Blood (Negative) Urine Bilirubin (Negative) Urine RBC (0-5) /hpf Amorphous Sediment (None) /hpf Hyaline Casts (0-2) /lpf 12/13/23 12/13/23 12/13/23 Range/Units 18:56 19:50 21:00 WBC (3.8-10.6) k/uL RBC (4.30-5.90) m/uL Hct (39.0-53.0) % RDW (11.5-15.5) % Neutrophils # (1.3-7.7) k/uL Lymphocytes # (1.0-4.8) k/uL PT (10.0-12.5) sec INR (<1.2) APTT 65.3 H (22.0-30.0) sec Sodium (137-145) mmol/L Chloride (98-107) mmol/L Carbon Dioxide (22-30) mmol/L BUN (9-20) mg/dL Creatinine (0.66-1.25) mg/dL Glucose (74-99) mg/dL POC Glucose (mg/dL) (70-110) mg/dL Plasma Lactic Acid Irving (0.7-2.0) mmol/L Calcium (8.4-10.2) mg/dL Phosphorus (2.5-4.5) mg/dL Magnesium (1.6-2.3) mg/dL Total Bilirubin (0.2-1.3) mg/dL AST (17-59) U/L ALT (4-49) U/L Alkaline Phosphatase (38-126) U/L Ammonia (<30) umol/L Troponin I 0.044 H* (0.000-0.034) ng/mL Total Protein (6.3-8.2) g/dL Albumin (3.5-5.0) g/dL Urine Protein 1+ H (Negative) Urine Glucose (UA) Trace H (Negative) Urine Blood Small H (Negative) Urine Bilirubin 3+ H (Negative) Urine RBC 6 H (0-5) /hpf Amorphous Sediment Moderate H (None) /hpf Hyaline Casts 3 H (0-2) /lpf 12/13/23 12/14/23 12/14/23 Range/Units 22:15 01:15 04:43 WBC (3.8-10.6) k/uL RBC (4.30-5.90) m/uL Hct (39.0-53.0) % RDW (11.5-15.5) % Neutrophils # (1.3-7.7) k/uL Lymphocytes # (1.0-4.8) k/uL PT (10.0-12.5) sec INR (<1.2) APTT (22.0-30.0) sec Sodium (137-145) mmol/L Chloride (98-107) mmol/L Carbon Dioxide (22-30) mmol/L BUN (9-20) mg/dL Creatinine (0.66-1.25) mg/dL Glucose (74-99) mg/dL POC Glucose (mg/dL) (70-110) mg/dL Plasma Lactic Acid Irving 9.1 H* 9.2 H* 9.6 H* (0.7-2.0) mmol/L Calcium (8.4-10.2) mg/dL Phosphorus (2.5-4.5) mg/dL Magnesium (1.6-2.3) mg/dL Total Bilirubin (0.2-1.3) mg/dL AST (17-59) U/L ALT (4-49) U/L Alkaline Phosphatase (38-126) U/L Ammonia (<30) umol/L Troponin I (0.000-0.034) ng/mL Total Protein (6.3-8.2) g/dL Albumin (3.5-5.0) g/dL Urine Protein (Negative) Urine Glucose (UA) (Negative) Urine Blood (Negative) Urine Bilirubin (Negative) Urine RBC (0-5) /hpf Amorphous Sediment (None) /hpf Hyaline Casts (0-2) /lpf 12/14/23 12/14/23 12/14/23 Range/Units 07:00 07:00 07:00 WBC 13.0 H (3.8-10.6) k/uL RBC 4.07 L (4.30-5.90) m/uL Hct 38.7 L (39.0-53.0) % RDW 19.9 H (11.5-15.5) % Neutrophils # 10.5 H (1.3-7.7) k/uL Lymphocytes # (1.0-4.8) k/uL PT 28.7 H (10.0-12.5) sec INR 2.9 H (<1.2) APTT (22.0-30.0) sec Sodium 134 L (137-145) mmol/L Chloride 96 L (98-107) mmol/L Carbon Dioxide 11 L (22-30) mmol/L BUN 120 H* (9-20) mg/dL Creatinine 5.41 H (0.66-1.25) mg/dL Glucose 107 H (74-99) mg/dL POC Glucose (mg/dL) (70-110) mg/dL Plasma Lactic Acid Irving (0.7-2.0) mmol/L Calcium 6.7 L (8.4-10.2) mg/dL Phosphorus 9.4 H* (2.5-4.5) mg/dL Magnesium 2.5 H (1.6-2.3) mg/dL Total Bilirubin 31.5 H* (0.2-1.3) mg/dL AST 434 H (17-59) U/L ALT 127 H (4-49) U/L Alkaline Phosphatase 1066 H (38-126) U/L Ammonia (<30) umol/L Troponin I (0.000-0.034) ng/mL Total Protein 5.7 L (6.3-8.2) g/dL Albumin 2.5 L (3.5-5.0) g/dL Urine Protein (Negative) Urine Glucose (UA) (Negative) Urine Blood (Negative) Urine Bilirubin (Negative) Urine RBC (0-5) /hpf Amorphous Sediment (None) /hpf Hyaline Casts (0-2) /lpf 12/14/23 12/14/23 Range/Units 09:27 09:27 WBC (3.8-10.6) k/uL RBC (4.30-5.90) m/uL Hct (39.0-53.0) % RDW (11.5-15.5) % Neutrophils # (1.3-7.7) k/uL Lymphocytes # (1.0-4.8) k/uL PT (10.0-12.5) sec INR (<1.2) APTT (22.0-30.0) sec Sodium (137-145) mmol/L Chloride (98-107) mmol/L Carbon Dioxide (22-30) mmol/L BUN (9-20) mg/dL Creatinine (0.66-1.25) mg/dL Glucose (74-99) mg/dL POC Glucose (mg/dL) (70-110) mg/dL Plasma Lactic Acid Irving 8.5 H* (0.7-2.0) mmol/L Calcium (8.4-10.2) mg/dL Phosphorus (2.5-4.5) mg/dL Magnesium (1.6-2.3) mg/dL Total Bilirubin (0.2-1.3) mg/dL AST (17-59) U/L ALT (4-49) U/L Alkaline Phosphatase (38-126) U/L Ammonia 50 H (<30) umol/L Troponin I (0.000-0.034) ng/mL Total Protein (6.3-8.2) g/dL Albumin (3.5-5.0) g/dL Urine Protein (Negative) Urine Glucose (UA) (Negative) Urine Blood (Negative) Urine Bilirubin (Negative) Urine RBC (0-5) /hpf Amorphous Sediment (None) /hpf Hyaline Casts (0-2) /lpf Chest x-ray: report reviewed CT scan - abdomen: report reviewed CT Scan - head: report reviewed CT scan - pelvis: report reviewed Venous US: report reviewed Assessment and Plan (1) Head and neck cancer Current Visit: Yes Status: Acute Priority: High Code(s): C76.0 - MALIGNANT NEOPLASM OF HEAD, FACE AND NECK SNOMED Code(s): 149237055 (2) Altered mental state Current Visit: Yes Status: Acute Priority: High Code(s): R41.82 - ALTERED MENTAL STATUS, UNSPECIFIED SNOMED Code(s): 893208825 (3) Failure to thrive Current Visit: Yes Status: Acute Priority: High Code(s): QJG1484 - SNOMED Code(s): 49995060 Plan: Metastatic tonsilar cancer: -Full oncological history in [facility] -On 08/24/2023,repeat PET scan showed significant disease progression in liver,osseous mets and subcutaneous right occipital lesion. On 09/09/2023,he started single agent opdivo. He completed palliative radiation to right occipital subcutaneous lesion on 09/30/2023. Since, patent developed jaundice and had significantly elevated LFT in October/2023, and was admitted to [facility]. MRCP showed bulky and diffuse liver mets. He was not felt to be a candidate for stenting. Last labs checked in clinic on 12/07, showed increasing LFTS and bilirubin. At his last f/u with Dr. Webster, his poor prognosis was discussed, and that he was not a candidate for additional systemic therapy. Palliative care/hospice were recommended, however, patient was not amendable to the same at that time. He was interested in having palliative radiation to his liver. He did f/u with rad onc last week, and had planned on palliative RT to liver on Friday. -Unfortunately, patient's condition has continued to decline, and he is in liver and kidney failure. Had long discussion today with patient and family regarding his disease progression and poor prognosis. Hospice was discussed, and patient and spouse would like to go home with hospice. Hospice has been consulted, and plan is for patient to go home tomorrow once medical equipment has been delivered *Please do not hesitate to reach out to our service for any additional assistance, questions or concerns
[2023-12-15] MEDS ORDERED: ONDANSETRON 4 MG/2 ML VIAL IVP PRN (01:25)
[2023-12-15] MEDS: ALPRAZolam 0.25 MG TAB PO STA ×2 (03:54→08:16)
[2023-12-15 07:47] VITALS: BP 91/57; PULSE 85; RESP 16; TEMP 97.3
[2023-12-15] MEDS: HYDROmorphone 1 MG/ML 1 ML SYRINGE IVP PRN (08:29)
== END 2023-12-15 10:51 | disposition hospice, inpatient (51) | DRG 683 ==
LOC: EC 15:34 → 2SICU 21:27 → 5NMEDONC 12-14 08:08
PROVIDERS: ADMIT Hospitalist; ATTEND Hospitalist
DX: N17.0 Acute kidney failure with tubular necrosis (principal); C77.0 Secondary and unspecified malignant neoplasm of lymph nodes of head, face and neck; E72.20 Disorder of urea cycle metabolism, unspecified; C79.51 Secondary malignant neoplasm of bone; C78.89 Secondary malignant neoplasm of other digestive organs; E87.20 Acidosis, unspecified; R18.8 Other ascites; D68.9 Coagulation defect, unspecified; C79.89 Secondary malignant neoplasm of other specified sites; E87.1 Hypo-osmolality and hyponatremia; C78.7 Secondary malignant neoplasm of liver and intrahepatic bile duct; K76.82 Hepatic encephalopathy; E83.39 Other disorders of phosphorus metabolism; I95.9 Hypotension, unspecified; K72.90 Hepatic failure, unspecified without coma; I10 Essential (primary) hypertension; Z66 Do not resuscitate; Z51.5 Encounter for palliative care; E83.51 Hypocalcemia; R62.7 Adult failure to thrive; E86.0 Dehydration; E78.5 Hyperlipidemia, unspecified; D18.09 Hemangioma of other sites; E83.52 Hypercalcemia; H91.90 Unspecified hearing loss, unspecified ear; R19.7 Diarrhea, unspecified; Z79.899 Other long term (current) drug therapy; Z85.818 Personal history of malignant neoplasm of other sites of lip, oral cavity, and pharynx; Z87.891 Personal history of nicotine dependence; Z92.3 Personal history of irradiation; Z92.21 Personal history of antineoplastic chemotherapy
CPT/HCPCS: 36415; 70450; 71046; 74176; 80053; 80143; 80179; 80306; 80320; 81001; 82140; 83605; 83690; 83735; 83880; 84100; 84484; 85025; 85610; 85730; 93005; 93970; 96365; 96366; 96367; 96375; 96376; 99291

== ENCOUNTER 2023-12-15 10:23 | Inpatient (IN) | payer MEDICAID ==
[2023-12-15] MEDS ORDERED: MORPHINE SULFATE 2 MG/ML SYRINGE IV PRN (10:44)
[2023-12-15] MEDS ORDERED: ACETAMINOPHEN SUPPOSITORY 650 MG SUPP RECTAL PRN (10:44)
[2023-12-15] MEDS ORDERED: DRY MOUTH SPRAY 44.3 SPRAY/44.3 ML SPRAY MUCOUS MEM PRN (10:44)
[2023-12-15] MEDS ORDERED: ARTIFICIAL TEARS-HYPROMELLOSE DROPS 15 ML BTL BOTH EYES PRN (10:44)
[2023-12-15] MEDS ORDERED: GLYCOPYRROLATE 0.2 MG/ML 2 ML VIAL IVP PRN (10:44)
[2023-12-15] MEDS ORDERED: LORazepam 0.5 MG TAB PO PRN (10:44)
[2023-12-15] MEDS ORDERED: ONDANSETRON 4 MG/2 ML VIAL IVP PRN (10:44)
[2023-12-15] MEDS ORDERED: ATROPINE OPHTH SOLN 1% 5ML BTL SUBLINGUAL PRN (10:44)
[2023-12-15] MEDS: SCOPOLAMINE 1 MG/72 HR PATCH TRANSDERM SCH (12:00)
--- NOTE | 2023-12-15 13:52 | P.DS ---
Providers Date of admission: 12/15/23 10:52 Expected date of discharge: 12/15/23 Attending physician: Feroz Harrell MD Primary care physician: Tom Keita [place] [facility] Course: Discharge diagnoses; Acute kidney injury Lactic acidosis Abdominal discomfort Coagulopathy with elevated liver enzymes and INR Hypercalcemia Hyperphosphatemia Hyperbilirubinemia Acute transaminitis Hyperammonemia Hyponatremia Elevated troponins 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 on PET scan in August 2023 Hospital course; patient is 73-year-old gentleman with past medical history significant for metastatic throat cancer who presented to the ER for altered mental status and abdominal pain. Patient was brought in by his who stated that patient normally follows up with Dr. Webster from oncology and was recently told that the patient has metastasis to his abdominal viscera. Patient has noticed that for the last few days he has been getting more short of breath and has swelling of lower extremities. Patient has been complaining of generalized abdominal pain. There is complaint of loss of appetite. Patient denies any chest pain. There is no complaint of palpitation. There is no complaint of fever or chills. Initial lab work done in the ER showed WBC 12.6, hemoglobin 13.9, platelet count 267, PT 20, INR 2, sodium 132, potassium 3.8, BUN 115, creatinine 5.14, glucose 104, lactate 9.6, calcium 7.3, magnesium 2.7, bilirubin 33.2, AST 405, ALT 136, troponin 0.049 proBNP 4040 EKG done in the ER showed heart rate of 85 , no ST segment elevation or depression seen, no T-wave inversions seen. Chest x-ray done in the ER no evidence for acute pulm disease CT head done showed age-related atrophic and chronic small vessel ischemic changes without acute intracranial process Duplex ultrasound of lower extremities done showed no evidence of DVT CT abdominal pelvis done showed hepatomegaly with probable hemangioma, prostate calcifications Initially plan was for patient to be admitted to ICU but family are wanting patient to be transition to hospice so hospice consult was placed while in the ER Patient admitted to internal medicine service 12/14. Patient was transitioned to hospice and was discharged to [facility]. PHYSICAL EXAMINATION: GENERAL: The patient is chronically ill, cachectic, icteric HEENT: Pupils are round and equally reacting to light. CARDIOVASCULAR: S1 and S2 present. Tachycardic PULMONARY: Tachypneic ABDOMEN: Soft, nontender, nondistended, MUSCULOSKELETAL: No joint swelling or deformity. EXTREMITIES: No cyanosis, clubbing, or pedal edema. NEUROLOGICAL: Lethargic SKIN: No rashes. Icteric Dictation was produced using [employer] dictation software. please excuse any grammatical, word or spelling errors. Patient Condition at Discharge: Poor Plan - Discharge Summary New Discharge Prescriptions: Continue Lidocaine-Prilocaine Cream [Emla Cream 2.5%/2.5%] 1 applic TOPICAL DIRECTED PRN PRN Reason: PORT ACCESS Hydrocortisone Cream [Hydrocortisone 2.5% Cream] 1 applic TOPICAL TID PRN PRN Reason: STUART/RASH traMADol HCL 25 mg PO Q6H Furosemide [Lasix] 20 mg PO DAILY ondansetron HCL [Zofran] 8 mg PO Q6H PRN PRN Reason: Nausea And Vomiting Docusate [Colace] 100 mg PO DAILY Discharge Medication List Docusate [Colace] 100 mg PO DAILY 12/13/23 [History] Furosemide [Lasix] 20 mg PO DAILY 12/13/23 [History] Hydrocortisone Cream [Hydrocortisone 2.5% Cream] 1 applic TOPICAL TID PRN 12/13/23 [History] Lidocaine-Prilocaine Cream [Emla Cream 2.5%/2.5%] 1 applic TOPICAL DIRECTED PRN 12/13/23 [History] ondansetron HCL [Zofran] 8 mg PO Q6H PRN 12/13/23 [History] traMADol HCL 25 mg PO Q6H 12/13/23 [History] Discharge Disposition: OTHER INSTITUTION NOT DEFINED
[2023-12-15] MEDS: LORazepam 2 MG/ML INJ IV PRN (13:55)
[2023-12-15] MEDS: HYDROmorphone 1 MG/ML 1 ML SYRINGE IVP PRN (15:23)
[2023-12-16 01:33] VITALS: RESP 11
== END 2023-12-16 04:25 | disposition expired | DRG 951 ==
LOC: 5NMEDONC 10:52
PROVIDERS: ADMIT Internal Medicine; ATTEND Internal Medicine
DX: Z51.5 Encounter for palliative care (principal); N17.9 Acute kidney failure, unspecified; E72.20 Disorder of urea cycle metabolism, unspecified; C79.51 Secondary malignant neoplasm of bone; D68.9 Coagulation defect, unspecified; E87.20 Acidosis, unspecified; E87.1 Hypo-osmolality and hyponatremia; C78.7 Secondary malignant neoplasm of liver and intrahepatic bile duct; R17 Unspecified jaundice; E83.39 Other disorders of phosphorus metabolism; Z66 Do not resuscitate; E83.52 Hypercalcemia; R74.01 Elevation of levels of liver transaminase levels; D18.09 Hemangioma of other sites; Z79.891 Long term (current) use of opiate analgesic; Z79.899 Other long term (current) drug therapy; Z85.818 Personal history of malignant neoplasm of other sites of lip, oral cavity, and pharynx